=== PATIENT | female | born 1950 | race Caucasian/White ===

== ENCOUNTER 2025-07-14 14:20 | Inpatient (IN) | payer MEDICARE, OTHER, SELFPAY ==
[2025-07-14] VITALS (8 sets, daily range): BP systolic 108–121; BP diastolic 47–63; BMI 23.3
--- NOTE | 2025-07-14 11:17 | EDRN ---
Sharon ZHAO was in to see pt and placed O2 up to 4lpm via NC as POX was low. This RN adjusted the POX and POX is 95% on the 4lpm at this time.
--- NOTE | 2025-07-14 11:41 | VATNOTE ---
Patient requested left subq port to be accessed for labs and treatment per primary RN. Education on infection risk was given to patient. Patient agreed and preferred to continue with port access. left subq power port card verified. 20Hx1 inch harris
inserted under sterile technique. Labs drawn from port and flushed with hep lock.
[2025-07-14 12:15] LABS: Hematocrit 24.1 % (37.0-47.0); Hemoglobin 8.2 g/dL (12.0-16.0); Mean Corp Hgb Conc. 34.0 g/dL (33.0-37.0); Mean Corpuscular Volume 94.5 fL (81.0-99.0); Platelet Count 56 10^3/uL (130-400); Red Cell Dist. Width 14.7 % (11.5-14.5)
[2025-07-14 12:17] LABS: Troponin I 0.034 ng/ml
[2025-07-14 12:22] LABS: ALT (SGPT) 13 U/L (0-35); AST (SGOT) 20 U/L (14-36); Albumin 3.8 g/dl (3.5-5.0); Alkaline Phosphatase 82 U/L (38-126); Blood Urea Nitrogen 30 mg/dl (7-17); Calcium 9.0 mg/dl (8.4-10.2); Carbon Dioxide 28 mmol/L (22-30); Chloride 101 mmol/L (98-107); Glucose 94 mg/dl (70-99); Potassium 4.2 mmol/L (3.5-5.1); Sodium 135 mmol/L (135-145); Total Protein 6.9 g/dl (6.3-8.2); eGFR 43.42
--- NOTE | 2025-07-14 12:39 | ED.GENMED ---
History of Present Illness
<Carol Heath PA-C - Last Filed: 07/14/25 13:10>
General
Chief Complaint: Breathing Problem
Time Seen by Provider: 07/14/25 11:00
History of Present Illness
History of Present Illness:
Natty is a 75-year-old female with past medical history of mitral valve replacement, lung cancer who presents from radiation after progressive dyspnea over the last several weeks. States that she had dyspnea in the past and was supposed to have her
mitral valve either replaced or repaired again but was newly diagnosed with lung cancer and therefore this procedure completed on hold. For last several weeks she has been experiencing progressive dyspnea on exertion that has worsened exponentially
over the last several days. She is now unable to walk several feet without becoming extremely short of breath. Denies any associated chest pain, nausea, vomiting. Does not wear oxygen at home but is now requiring it.
Phy Exam
<Carol Heath PA-C - Last Filed: 07/14/25 13:10>
General Physical Exam
General Presentation: well appearing and no apparent distress
General Skin: warm and dry
General Habitus: normal
General Mental: alert
General Hydration: appears well hydrated
ENT Exam
ENT Exam: EOMI, pharynx normal, neck supple and normocephalic
Eye Exam
Eye Exam: PERRL, cornea clear and conjunctiva normal
Cardiovascular Exam
Cardiovascular Exam: regular rate/rhythm, no edema, no murmur and normal peripheral pulses
Pulmonary Exam
Pulmonary Exam: lungs clear, no respiratory distress, no rales, no crackles, no rhonchi, no stridor, no wheezing and no cough
Gastrointestinal Exam
Gastrointestinal Exam: normal bowel sounds, non tender, soft, no organomegaly, no pulsatile mass and non distended
Neurological Exam
Neurological Exam: alert, oriented x3, no motor deficits and speech normal
Musculoskeletal Exam
Musculoskeletal Exam: full ROM and no edema
Skin Exam
Skin Exam: normal color, warm/dry, no rash and no petechia
Psychiatric Exam
Psychiatric Exam: normal mood/affect
Scores
<Carol Heath PA-C - Last Filed: 07/14/25 13:10>
Heart Failure Risk
Heart Failure Risk Score: Yes
History of Stroke or TIA: No
History of intubation for respiratory distress: No
Heart rate on ED arrival >/= 110: No
SaO2 <90% on arrival on room air: Yes
HR >/=110 during 3min walk test (or too ill to perform test): No
ECG has acute ischemic changes: No
Urea >/=12mmol/L (BUN 33.6mg/dL): No
Serum CO2>/=35mmol/L: No
Troponin I or T elevated to NE Level (0.4mg/dL): No
NT-proBNP >/=5,000ng/L (5,000pg/ml): Yes
HF Risk Score: 2
Admission Status: MEDIUM RISK 9.2% Consider observation or discharge to home with homecare & f/u visit to PCP/[employer], or SNF for treatment
Course
<Carol Heath PA-C - Last Filed: 07/14/25 13:10>
Orders/Labs/Results
Orders:
Orders
07/14/25 10:53
Electrocardiogram (*1) Urgent
Reason for Study: Other
Other Reason for Exam: Respiratory Distress
Cardiac Monitoring- Treatment ONCE
EKG- Treatment ONCE
IV Insert/Care/Rem.- Treatment PRN
CR Chest - 2 Views Urgent
Comment:
Reason For Exam: respiratory distress
O2 Therapy [RESP] Urgent
Titrate/Wean O2 to maintain O2 sat greater than (%): 93
Special Instructions: TO MAINTAIN CONTINUOUS O2 SATS >/= 93%
Pulse Ox/cont/shift [RESP] Urgent
Quantity: 1
Special Instructions: continuous pulse ox
07/14/25 11:40
Complete Blood Count/With Diff Urgent
Comprehensive Metabolic Panel Urgent
Manual Differential Urgent
NT-proBNP Urgent
Troponin I Urgent
Abnormal Lab Results
07/14/25
11:40
WBC 0.8 L* 10^3/uL
(4.8-10.8)
RBC 2.55 L 10^6/uL
(4.20-5.40)
Hgb 8.2 L g/dL
(12.0-16.0)
Hct 24.1 L %
(37.0-47.0)
MCH 32.2 H pg
(27.0-31.0)
RDW 14.7 H %
(11.5-14.5)
Plt Count 56 L 10^3/uL
(130-400)
MPV 11.1 H fL
(7.4-10.4)
BUN 30 H mg/dl
(7-17)
Creatinine 1.3 H mg/dL
(0.6-1.0)
07/14/25 11:40
07/14/25 11:40
Vital Signs
Initial and Last Documented VS:
Initial Vital Signs
Temp Pulse Resp BP Pulse Ox
36.9 C 83 16 117/47 97
07/14/25 10:45 07/14/25 10:45 07/14/25 10:45 07/14/25 10:45 07/14/25 10:45
Last Documented Vital Signs
Temp Pulse Resp BP Pulse Ox
36.9 C 81 18 121/63 94
07/14/25 10:45 07/14/25 11:15 07/14/25 11:15 07/14/25 11:01 07/14/25 12:44
<Kimberley Lorenz MD - Last Filed: 07/14/25 12:53>
Orders/Labs/Results
Orders:
Orders
07/14/25 10:53
Electrocardiogram (*1) Urgent
Reason for Study: Other
Other Reason for Exam: Respiratory Distress
Cardiac Monitoring- Treatment ONCE
EKG- Treatment ONCE
IV Insert/Care/Rem.- Treatment PRN
CR Chest - 2 Views Urgent
Comment:
Reason For Exam: respiratory distress
O2 Therapy [RESP] Urgent
Titrate/Wean O2 to maintain O2 sat greater than (%): 93
Special Instructions: TO MAINTAIN CONTINUOUS O2 SATS >/= 93%
Pulse Ox/cont/shift [RESP] Urgent
Quantity: 1
Special Instructions: continuous pulse ox
07/14/25 11:40
Complete Blood Count/With Diff Urgent
Comprehensive Metabolic Panel Urgent
Manual Differential Urgent
NT-proBNP Urgent
Troponin I Urgent
Abnormal Lab Results
07/14/25
11:40
WBC 0.8 L* 10^3/uL
(4.8-10.8)
RBC 2.55 L 10^6/uL
(4.20-5.40)
Hgb 8.2 L g/dL
(12.0-16.0)
Hct 24.1 L %
(37.0-47.0)
MCH 32.2 H pg
(27.0-31.0)
RDW 14.7 H %
(11.5-14.5)
Plt Count 56 L 10^3/uL
(130-400)
MPV 11.1 H fL
(7.4-10.4)
BUN 30 H mg/dl
(7-17)
Creatinine 1.3 H mg/dL
(0.6-1.0)
07/14/25 11:40
07/14/25 11:40
Vital Signs
Initial and Last Documented VS:
Initial Vital Signs
Temp Pulse Resp BP Pulse Ox
36.9 C 83 16 117/47 97
07/14/25 10:45 07/14/25 10:45 07/14/25 10:45 07/14/25 10:45 07/14/25 10:45
Last Documented Vital Signs
Temp Pulse Resp BP Pulse Ox
36.9 C 81 18 121/63 94
07/14/25 10:45 07/14/25 11:15 07/14/25 11:15 07/14/25 11:01 07/14/25 12:44
<Carol Heath PA-C - Last Filed: 07/14/25 13:10>
MDM/Problems Addressed
Differential Diagnosis Includes:
Requiring 2 L nasal cannula on arrival and satting at 88%. Increased to 4 L with a good response.
CBC shows neutropenia which is related to her ongoing chemotherapy treatment for lung cancer. BMP shows elevated creatinine of 1.3 is not baseline for patient.
Chest x-ray appears volume overloaded. Will give 40 of IV Lasix now. Given the patient is requiring supplemental oxygen and is unable to ambulate without becoming very short of breath will have patient admitted to the hospital service. Discussed
with Dr. Lorenz.
<Carol Heath PA-C - Last Filed: 07/14/25 13:10>
*Pulse Oximetry
SaO2: 94
Nasal Cannula flow liters per minute: 4
Oxygen Mode of Delivery: Room air
Patient hypoxic: yes
*Critical Care Note
Total Time (30-74mins, 75-104mins- exclusive of procedures): Not Applicable
ED Attending Note
<Carol Heath PA-C - Last Filed: 07/14/25 13:10>
-
Portions of this chart may have been created with voice recognition software.� Occasional wrong word or��sound alike� substitutions may have occurred due to the inherent limitations of voice recognition software.
<Kimberley Lorenz MD - Last Filed: 07/14/25 12:53>
ED Attending Note
Patient seen and examined by attending physician: Yes
I performed the substantive portion of visit, reviewed & personally made and approve the management plan that is documented in note by myself or NESHA.: Yes
ED Attending Note:
I have seen and evaluated the patient with a [id number] encounter. I have spoken to the [NESHA] and involved in the medical history, the physical exam, medical decision making.
Evaluation and management service: agree unless noted differently below.
Results interpretation: agree unless noted differently below.
75-year-old woman with history of lung cancer presenting to the emergency department shortness of breath. Patient has been having dyspnea on exertion for quite some time. She does note that she has fluid in her lungs and she is on Lasix for it.
However symptoms are not getting better. Denies any leg swelling. No chest pain. No hemoptysis. She is not on oxygen regularly. On arrival here patient was hypoxic. She was placed on 4 L. Lungs do show crackles at bilateral bases. Heart is
regular rate and rhythm. Chest x-ray per my interpretation with pleural effusions and vascular congestion. Patient will need admission.
Discharge Plan
Departure
Patient Disposition: Admit
Date of Disposition: 07/14/25
Time of Disposition: 13:07
Presentation/result/management discussed w/ accepting MD/DO: Hospitalist
Discharge Problem:
LAOGS (dyspnea on exertion), Exertional shortness of breath, Volume overload
Referrals:
Gavi Sidhu CRNP [Family Provider, General]
Interventions
Interventions:
*Risk Screen - Suicide Last Done: 07/14/25 10:50
*General Assessment Last Done: 07/14/25 11:22
*Neglect/Abuse Screening Last Done: 07/14/25 11:22
*ED COVID-19 Vaccine History Last Done: 07/14/25 11:22
*ED Influenza Vaccine History Last Done: 07/14/25 11:22
[facility] Fall Risk Assessment Tool Last Done: 07/14/25 10:31
ED- Cardiac Assessment Last Done: 07/14/25 11:22
ED- Pulmonary Assessment Last Done: 07/14/25 11:22
Discharge Date and Time
Print Language: JORDANIAN
--- NOTE | 2025-07-14 13:13 | HPS.HSE ---
Family Physician
-
Family Physician: DESI Samuel
Chief Complaint
-
Shortness of breath
History of Present Illness
Patient is a 75 y/o female past medical history of small cell lung cancer currently undergoing chemotherapy and radiation, paroxysmal atrial fibrillation, chronic heart failure, valvular heart disease, chronic kidney disease, and graves disease who
presents with increased shortness of breath. Patient reports increased dyspnea on exertion since this morning. She reports symptoms resolve with rest. She denies chest pain, palpitations, lower extremity edema, changes in weight, cough, or fever.
She reports her Lasix dose was decreased from twice a day to once a day about 2-3 weeks ago.
Medical History
Past Medical History
Past Medical History: Reports Other
Additional Past Medical History:
Small Cell Lung Cancer
COPD
Pulmonary Hypertension
Chronic HFpEF
Valvular Heart Disease
Paroxysmal Atrial Fibrillation s/p MITZY ligation and MAZE procedure
Essential Hypertension
Hyperlipidemia
CKD Stage III
Graves Disease
Past Surgical History: Reports Other
Additional Past Surgical History:
Bioprosthetic Mitral Valve Replacement - 2019
Social History
Tobacco: Former Smoker (Quit in 2019)
Alcohol: Other (Rare)
Family History
Family History: Not pertinent
Allergies / Home Medications
Allergies reflects when Allergies were last updated in [facility].
Home Medications with original date entered in [facility]
Allergy/Medication List:
Allergies
Allergy/AdvReac Type Severity Reaction Status Date / Time
No Known Allergies Allergy Unverified 07/14/25 10:50
Home Medications
amiodarone 200 mg tablet 200 mg PO DAILY 07/14/25
apixaban 5 mg tablet (Eliquis) 5 mg PO BID 07/14/25
calcium carbonate 500 mg PO DAILY 07/14/25
cyclobenzaprine 5 mg tablet 5 mg PO TIDPRN PRN spasms 07/14/25
furosemide 40 mg tablet (Lasix) 40 mg PO DAILY 07/14/25
levothyroxine 50 mcg tablet (Synthroid) 50 mcg PO DAILY 07/14/25
metoprolol succinate 25 mg tablet,extended release 24 hr (Toprol XL) 25 mg PO DAILY 07/14/25
olanzapine 5 mg tablet 5 mg PO HS 07/14/25
rosuvastatin 5 mg tablet (Crestor) 5 mg PO DAILY 07/14/25
therapeutic multivitamin 1 tab PO DAILY 07/14/25
umeclidinium 62.5 mcg-vilanterol 25 mcg/actuation powdr for inhalation (Anoro Ellipta) 1 inh inhalation R DAILY 07/14/25
Review of Systems
-
A 12 point ROS was completed and negative except as noted: Yes
Constitutional: Denies Fever
Respiratory: Reports Trouble Breathing; Denies Cough
Cardiac: Denies Chest Pain or Palpitations
Physical Exam
Vital Signs
Vital Signs
Temp Pulse Resp BP Pulse Ox
98.4 F 81 18 121/63 94
07/14/25 10:45 07/14/25 11:15 07/14/25 11:15 07/14/25 11:01 07/14/25 12:44
Physical Exam
General: Comfortable and Conversant
HEENT: Anicteric and Moist mucous membranes
Respiratory: Rales (Bilaterally) and Non Labored Respirations
Cardiac: S1/S2 and Regular Rhythm
GI: Soft and Non Tender
Rectal: Deferred by Provider
Musculoskeletal: No Clubbing, No Cyanosis and No Edema
Skin: Warm and Dry
Neuro: Awake, Alert, Oriented and Nonfocal/grossly intact
Psych: Calm
Laboratory Results
-
07/14/25 11:40
07/14/25 11:40
Laboratory Results
Total Bilirubin 0.8 mg/dl (0.2-1.3) 07/14/25 11:40
AST 20 U/L (14-36) 07/14/25 11:40
ALT 13 U/L (0-35) 07/14/25 11:40
Alkaline Phosphatase 82 U/L (38-126) 07/14/25 11:40
Troponin I 0.034 ng/ml 07/14/25 11:40
Chest X-Ray:
Mild pulmonary edema. Small left pleural effusion.
Data Reviewed
-
Lab Data: Labs Reviewed by me
Old Records: Reviewed
Impression/Plan
-
Acute on Chronic HFpEF
-Echo 2024: Mildly increased left ventricular wall thickness consistent with mild centric hypertrophy. No segmental wall motion abnormalities. Left ventricular ejection fraction 65%. Bioprosthetic mitral valve prothesis with mild mitral
regurgitation and moderate mitral stenosis.
-NT-proBNP significantly elevated 7950 compared to 479 in Mar 2025
-Consult Cardiology
-Check Echocardiogram to evaluate for any changes related to chemotherapy +/- radiation
-Continue Lasix 40mg IV BID
-Monitor Is&Os and Daily Weights
Chemo-Induced Pancytopenia
-Consult hematology
-Monitor counts closely
Small Cell Lung Cancer, receives treatment at [place]
-Most recent chemotherapy Jul 02
-Most recent radiation Jul 14
COPD, no acute exacerbation
-Continue Anoro Ellipta
Paroxysmal Atrial Fibrillation s/p MITZY ligation and MAZE procedure
-Continue Eliquis for anticoagulation
-Continue amiodarone and metoprolol for rate/rhythm control
Essential Hypertension
-Continue metoprolol with hold parameters
Hyperlipidemia
-Continue Crestor
CKD Stage III
-Creatinine at baseline
-Monitor closely while on diuretics
Graves Disease
-Continue levothyroxine
Hx Bioprosthetic Mitral Valve Replacement - 2018
DVT proph: Eliquis
Code Status: Full Code
--- NOTE | 2025-07-14 13:16 | W.PN.UPDATE ---
Update Note
Progress Note Update
This note serves as an addendum to the H&P by chief architect NESHA Alison BROWNLEE
HPI�
75F HX Ca Lung on going XRT , HX MVR seen at ER ;
- evalaution of worsening SoB espicailly with exertion
- on EARLY CHILDHOOD EDUCATION COORDINATOR Lasix but not imprived
- Denies any leg swelling.
- No chest pain. No hemoptysis.
- not on O2 regularly.
On arrival - hypoxic POX 88% thus placed on 4 L.
CXR : my interpretation with pleural effusions and vascular congestion
CBC : neutropenia which is related to her ongoing chemotherapy treatment for lung cancer.
BMP : elevated creatinine of 1.3 is not baseline for patient.
p BNP 7 k
IV lasix 40 given at ER
PHX: see above
All health care is by [facility] and [facility]
Ca lung Nodule
Reviewed VS:
Temp Pulse Resp BP Pulse Ox
98.4 F 81 18 121/63 94
07/14/25 10:45 07/14/25 11:15 07/14/25 11:15 07/14/25 11:01 07/14/25 12:44
PE
Gen: Not toxic
HEENT: anicteric
Neck: supple
Lungs:basilar rales
Cor: RRR S1 S2
Abdomen:�soft NT NG
ACCOUNT INSTALLER: AAO3
MS:no edema
Psych:Nl mood and affect
Relevant Data�
07/14/25
11:40
WBC 0.8 L*
Hgb 8.2 L
Plt Count 56 L
BUN 30 H
Creatinine 1.3 H
eGFR 43.42
Total Bilirubin 0.8
AST 20
ALT 13
Alkaline Phosphatase 82
Troponin I 0.034
Urg-X-Mhwyohfyuqi Pept 7950
Albumin 3.8
Baseline Cr 1.2 - 1.3
BNP 400 March 2025 ( [facility])
06/27/25 Nl WCC, Nl Plt , Hgb 11
CXR:
1. Mild pulmonary edema.
2. Small left pleural effusion.
3. Left lower lobe nodule seen on prior PET/CT dated 01/31/2025 is not well-visualized on chest x-ray.
EKG
NORMAL SINUS RHYTHM
NONSPECIFIC T WAVE ABNORMALITY
ABNORMAL ECG
NO PREVIOUS ECGS AVAILABLE
01/31/25 PET scan
- Markedly FDG avid solitary left lower lobe pulmonary nodule (which further increases upon delayed imaging), highly suspicious for primary lung cancer.
- No additional suspicious FDG avid lesions in the body.
NO PRIOR hospitalist admission:
ASSESSMENT & PLAN
Progressive [place] with associated acute hypoxic RI due to acute HF
In acute HF suspect CHF unknown type ( No prior TTE in [facility])
- IV Lasix 40 BID ( EARLY CHILDHOOD EDUCATION COORDINATOR PO 40 BID)
- c/w EARLY CHILDHOOD EDUCATION COORDINATOR Metoprolol XL 25 daily
- Supplemental O2 - goal POX > 94%
- Daily IOs, wt
- Daily BMP
- ECHO
- DCA Card consult
ANC 60 ( WCC 0.8, % Neutrophils 0.0, Sef Neutrophils 8%)
- Chemo induced pancytopenia
- Last Chemo 07/02/25 and on going XRT last 2 weeks
- 01/31/25 PET POS HX solitary left lower lobe pulmonary nodule (which further increases upon delayed imaging), highly suspicious for primary lung cancer.
- Bx POS for SC
- P Onco at [facility]
- Hematology consult for ANC 60 and evaluation for GCSF ?
Known CKD with baseline Cr 1.2 - 1.3
- Trend Cr with IV diuresis
In NSR
HX Prx AF
- c/w EARLY CHILDHOOD EDUCATION COORDINATOR Eliquis
- c/w EARLY CHILDHOOD EDUCATION COORDINATOR Amiodarone
HLD
- c/w Rosuvastatin
DVT Px: EARLY CHILDHOOD EDUCATION COORDINATOR Eliquis
Full Code
IP TLM
[2025-07-14 13:41] LABS: Anisocytosis 1+; Normal RBC Morphology No; Platelets Checked Yes; Polychromasia 1+; Total Cells Counted 100
[2025-07-14 13:42] LABS: Absolute Neutrophils -Man Diff 0.0 10^3/uL (1.4-6.5)
[2025-07-14] MEDS: LASIX 40 MG IV ×2 (14:22→16:37)
--- NOTE | 2025-07-14 15:13 | CON.CAR ---
Addendum entered and electronically signed by Josephine Moore DO 07/15/25 02:44:
I saw and examined the patient.
The Business Department Chair's note was reviewed and I agree with the note.
Comment: Patient was seen and examined with cardiac PA in ED. Natty is a 75 year old female who presented to [facility] ER for evaluation of worsening shortness after radiation treatment today. She reports shortness of breath started late last week and
persisted over the weekend. She denies fever/chills or sick contacts. She has had no worsening of her cough. During radiation today she became increasingly short of breath and requested O2 prompting ER referral. Her oxygenation improved reportedly
and she came to ER for evaluation. On arrival she was hypoxic and had evidence of acute heart failure on chest xray and with proBNP 7950. She denies any weight gain noted as OP, but states she is typically between 140 and 145 lbs. Weight in ER noted
to be elevated at 148 lbs. She denies any LE edema or chest pain.
.
Natty has a history of a [facility] bioprosthetic mitral valve replacement in 2019 as well as paroxysmal atrial fibrillation status post maze and left atrial appendage ligation at the time of mitral valve replacement. She is on chronic Eliquis
anticoagulation as well as amiodarone and was recently found by her corrugator machine operator to have stenosis of her bioprosthetic valve. She had been referred to CT surgery however focus of her care shifted when she was diagnosed with small cell lung cancer.
She is now under the care of [facility] undergoing chemotherapy (chemo with carboplatin/etoposide, last 07/02) with Dr. Mallorie Ross and receiving radiation through [facility].Her outpatient corrugator machine operator is Dr. Garcia. She is
also followed by Dr. Mallorei Ross at [facility] ([phone]; [phone]). Records will be requested
General: Frail 75-year-old female, NAD on nasal cannula O2; Chemotherapy alopecia
Heart: Regular, positive S1/S2, 2/6 SM
Lungs: Bronchovesicular breath sounds with crackles bilaterally and scattered end expiratory wheezes.
Abd: Positive BS, NT/ND, neg rebound/rigidity/guarding
Ext: no edema
Neuro: nonfocal
Plan:
Acute hypoxic respiratory failure with recently diagnosed non-small cell lung cancer undergoing chemotherapy and radiation as well as prostatic mitral stenosis status post bioprosthetic MVR in 2019
- Chest x-ray with pulmonary edema and small left pleural effusion
- proBNP 7950.
- Cardiac troponin 0.034 -doubt ACS
- twelve-lead EKG sinus rhythm with nonspecific ST-T wave abnormality
- Repeat 2D echocardiogram to reassess heart function and valvular heart disease as well as to exclude pericardial effusion
-O2 supplementation
- Continue IV Lasix
- Monitor renal function/electrolytes with diuresis. Creatinine 1.3 with unknown baseline
- In sinus rhythm but with history of PAF�continue telemetry monitoring.
- Given immunocompromise state would consider checking for flu/COVID, defer to primary
-Hemoglobin 8.2 with unknown baseline. WBC 0.8, platelet count 56,000..
- Pending additional testing will likely need to reach out to patient's oncologist and outpatient corrugator machine operator.
History of paroxysmal atrial fibrillation currently in sinus rhythm. Patient reportedly has left atrial appendage ligation in 2019
- Currently in sinus rhythm and with monitor on telemetryFollow CBC
- For now continue outpatient amiodarone and beta-roselia
- Continue Eliquis with close monitoring of hemoglobin/platelets
-History of Graves' disease on amiodarone. Check TSH
Non-small cell lung cancer currently receiving chemotherapy and radiation with pancytopenia
-Follow CBC
Original Note:
Consultation
Consultation Request
Date/Time Consultation Requested: 07/14/2025
Date/Time Consultation Performed: 07/14/2025
Requesting Provider: Dr. Dutta
Performing Provider: Rebekah Clarke PA-C for Dr. Moore
Reason for Consultation: CHF
Medical History
-
History of Present Illness:
HPI: Natty is a 75 year old female with PMH of chronic HFpEF, paroxysmal atrial fibrillation, MVR, lung cancer, graves disease, COPD, HTN, and HLD. Presented to [facility] ER for evaluation of worsening shortness of breath over the past few days. She
first noticed symptoms over the weekend, and when she was leaving her radiation appt earlier today, became increasingly SOB and requested O2 therapy. Her oxygenation improved reportedly and she came to ER for evaluation. On arrival she was hypoxic
and had evidence of acute heart failure on chest xray and with proBNP 7950. She denies any weight gain noted as OP, but states she is typically between 140 and 145 lbs. Weight in ER noted to be elevated at 148 lbs. She denies any LE edema or chest
pain. Typically follows with cardiology at [place], Dr. Alas. Has known moderate bioprosthetic mitral valve stenosis. Has been referred to CT surgery, but plan was to focus on management/treatment of lung cancer and follow up for valve intervention
once in remission/improved from oncology viewpoint.
PMH:
Chronic HFpEF
Paroxysmal atrial fibrillation
s/p MAZE, MITZY ligation
chronic amiodarone therapy
Chronic OAC with Eliquis
s/p #29 [facility] bioprosthetic MVR 10/26/2018
Lung Cancer
Graves Disease
COPD
HTN
HLD
Past Medical History
Past Medical History: Other (In HPI)
Past Surgical History: Cardiac (MVR 2018)
Social History
Tobacco: Former Smoker
Alcohol: Occasional
Drug: None
Personal: Single
Family History
Family History: Reviewed & Not Pertinent
Allergies / Home Medications
Allergy/AdvReac Type Severity Reaction Status Date / Time
No Known Allergies Allergy Unverified 07/14/25 10:50
�Medication �Instructions �Recorded �Confirmed �Type
amiodarone 200 mg tablet 200 mg PO DAILY 07/14/25 07/14/25 History
apixaban 5 mg tablet (Eliquis) 5 mg PO BID 07/14/25 07/14/25 History
calcium carbonate 500 mg PO DAILY 07/14/25 07/14/25 History
cyclobenzaprine 5 mg tablet 5 mg PO TIDPRN PRN spasms 07/14/25 07/14/25 History
furosemide 40 mg tablet (Lasix) 40 mg PO DAILY 07/14/25 07/14/25 History
levothyroxine 50 mcg tablet 50 mcg PO DAILY 07/14/25 07/14/25 History
(Synthroid)
metoprolol succinate 25 mg 25 mg PO DAILY 07/14/25 07/14/25 History
tablet,extended release 24 hr
(Toprol XL)
olanzapine 5 mg tablet 5 mg PO HS 07/14/25 07/14/25 History
rosuvastatin 5 mg tablet (Crestor) 5 mg PO DAILY 07/14/25 07/14/25 History
therapeutic multivitamin 1 tab PO DAILY 07/14/25 07/14/25 History
umeclidinium 62.5 mcg-vilanterol 1 inh inhalation R DAILY 07/14/25 07/14/25 History
25 mcg/actuation powdr for
inhalation (Anoro Ellipta)
Review of Systems
-
History Source: Patient
All other systems: Negative unless noted
Physical Exam
Vital Signs
Temp Pulse Resp BP Pulse Ox
98.4 F 91 26 110/57 97
07/14/25 10:45 07/14/25 14:30 07/14/25 14:30 07/14/25 14:22 07/14/25 14:30
Lab Results
07/14/25 11:40
07/14/25 11:40
Troponin I 0.034 ng/ml 07/14/25 11:40
Qui-V-Nmzxevgwuwb Pept 7950 pg/ml 07/14/25 11:40
Physical Exam
General: Well Developed, Well Nourished and No Apparent Distress
HEENT: Normocephalic, Anicteric and Moist Mucous Membranes
Respiratory: Crackles and Non Labored Respirations
Cardiac: S1/S2, Regular Rhythm and Murmur
Musculoskeletal: No Clubbing, No Cyanosis and Edema
Skin: Warm and Dry
Neuro: AO x 3 and Nonfocal/Grossly Intact
Psych: Calm
Impression / Plan
-
Delinquency Prevention Officer: Dr. Alas
Impression:
Presented with worsening SOB
Acute on chronic HFpEF
Pancytopenia
Paroxysmal atrial fibrillation
s/p MAZE, MITZY ligation
chronic amiodarone therapy
Chronic OAC with Eliquis
s/p #29 [facility] bioprosthetic MVR 10/26/2018
Lung Cancer receiving XRT and chemo with carboplatin/etoposide
Graves Disease
COPD
HTN
HLD
DOUGLAS 10/03/2024 @[place]: EF 65%, well-seated bioprosthetic mitral valve with mild MR, moderate MS, trace AR, moderate to severe TR with moderate to severe pulmonary hypertension
Echo 07/14/2025: Study pending
Plan:
-Presented with worsening shortness of breath over the past few days. Admitted with acute heart failure exacerbation. proBNP 7950
-Agree with starting IV Lasix 40 mg twice daily. She is on Lasix 40 mg daily as outpatient. Dose had been reduced within the past month or so from 40 mg twice daily.
-Creatinine 1.3. Follow with diuresis.
-Weight 148 pounds on 07/14. Follow daily weights, I&O's. Reported dry weight is between 140 and 145 pounds.
-DOUGLAS 10/03/2024 revealed preserved EF with moderate bioprosthetic mitral valve stenosis. Repeat echo this admission
-In SR by ECG and on review of telemetry. Heart rates stable. Continue amiodarone 200 mg daily.
-Continue Eliquis 5 mg twice daily for anticoagulation given history of atrial fibrillation.
-Continue Toprol 25 mg daily and rosuvastatin 5 mg daily.
-On 4L NC. Wean as able.
HPI: Natty is a 75 year old female with PMH of chronic HFpEF, paroxysmal atrial fibrillation, MVR, lung cancer, graves disease, COPD, HTN, and HLD. Presented to [facility] ER for evaluation of worsening shortness of breath over the past few days. She
first noticed symptoms over the weekend, and when she was leaving her radiation appt earlier today, became increasingly SOB and requested O2 therapy. Her oxygenation improved reportedly and she came to ER for evaluation. On arrival she was hypoxic
and had evidence of acute heart failure on chest xray and with proBNP 7950. She denies any weight gain noted as OP, but states she is typically between 140 and 145 lbs. Weight in ER noted to be elevated at 148 lbs. She denies any LE edema or chest
pain. Typically follows with cardiology at [place], Dr. Alas. Has known moderate bioprosthetic mitral valve stenosis. Has been referred to CT surgery, but plan was to focus on management/treatment of lung cancer and follow up for valve intervention
once in remission/improved from oncology viewpoint.
Data Reviewed
-
EKG: Tracing Personally Visualized and interpreted
Radiology: Report Reviewed by me
Labs: Labs Reviewed by me
Old Records: Reviewed
--- NOTE | 2025-07-14 15:33 | EDCM ---
Reviewed chart and met with pt bedside in ED. Lives alone in one story home, 2 [address].
Independent in ADLs, personal care and ambulation at baseline. No assistive devices.
Pt has been receiving chemo and radiation for lung cancer at [place]. She wants to complete her cancer treatment prior to having mitral valve replacement. MVR to be done at [facility].
Her niece lives locally and provides support, her sister live in [place]. She does not have her phone with her and does not know their numbers.
Currently on 4 L NC in ED, does not have home O2.
Confirms prescription coverage.
PCP: Gavi Sidhu
Pharmacy: [facility]
Anticipate discharge home, CM will continue to follow for all discharge planning needs.
--- NOTE | 2025-07-14 16:47 | PTCARENOTE ---
Pt arrived to [facility] from ED via stretcher at 1600. Pt walked from stretcher to room with an assist of one. Vitals taken, on 4L of O2, connected to tele monitor #4. Pt oriented to room with no current complaints. Plan of care ongoing.
--- NOTE | 2025-07-14 18:49 | W.PN.UPDATE ---
Update Note
Progress Note Update
Reviewed patient echocardiogram which demonstrates preserved LV function with evidence of severe MS and TR with elevated pulmonary pressures. Patient to be transferred to IVU for closer monitoring. Continue telemetry and IV diuresis. Case
discussed/reviewed with Dr Moore who performed initial consult.
[2025-07-14] MEDS: ELIQUIS 5 MG PO (19:49)
--- NOTE | 2025-07-14 21:23 | PTCARENOTE ---
received the patient from the 3rd floor. niece at the bedside. AAOx3. SQUAXIN. denies any cp/palps. complains of shortness of breath; more on exertion. shallow breathing noted. crackles b/l bases. 96% on 4L NC. dry cough noted- patient states it is new.
ambulated in the room, steady on her feet. reviewed plan of care with patient and verbalized understanding. neutropenic precautions maintained/sign on door. call garnica within reach. makes needs known.
[2025-07-15 04:16] VITALS: BP 103/55
[2025-07-15 04:59] LABS: Blood Urea Nitrogen 25 mg/dl (7-17); Calcium 8.9 mg/dl (8.4-10.2); Carbon Dioxide 32 mmol/L (22-30); Chloride 98 mmol/L (98-107); Estimated Creatinine Clearance 35 ml/min; Glucose 102 mg/dl (70-99); HDL Cholesterol 51 mg/dl; LDL Cholesterol, Calculated 60 mg/dl; Magnesium 2.0 mg/dl (1.6-2.3); Potassium 3.9 mmol/L (3.5-5.1); Sodium 134 mmol/L (135-145); Very Low Density Lipoprotein 19 mg/dl (0-30); eGFR 43.42
[2025-07-15 05:11] LABS: Hematocrit 25.0 % (37.0-47.0); Hemoglobin 8.3 g/dL (12.0-16.0); Mean Corp Hgb Conc. 33.2 g/dL (33.0-37.0); Mean Corpuscular Volume 95.8 fL (81.0-99.0); Platelet Count 68 10^3/uL (130-400); Red Cell Dist. Width 15.4 % (11.5-14.5)
[2025-07-15 06:00] VITALS: BMI 22.6
[2025-07-15] MEDS: SYNTHROID 50 MCG PO (06:15)
[2025-07-15 07:08] VITALS: BP 129/79
[2025-07-15] MEDS: ELIQUIS 5 MG PO ×2 (07:28→19:31)
[2025-07-15] MEDS: TOPROL XL 25 MG PO (07:28)
[2025-07-15] MEDS: LASIX 40 MG IV ×2 (07:28→16:15)
[2025-07-15] MEDS: PACERONE 200 MG PO (07:28)
[2025-07-15] MEDS: CRESTOR 5 MG PO (07:34)
--- NOTE | 2025-07-15 08:45 | W.PN.HOSP.TC ---
Today's Communication/Plan
-
Continue Lasix
Assessment / Plan
Assessment / Plan
Impression:
Patient is a 75 y/o female past medical history of small cell lung cancer currently undergoing chemotherapy and radiation, paroxysmal atrial fibrillation, chronic heart failure, valvular heart disease, chronic kidney disease, and graves disease who
presents with increased shortness of breath. Patient reports increased dyspnea on exertion since this morning. She reports symptoms resolve with rest. She denies chest pain, palpitations, lower extremity edema, changes in weight, cough, or fever.
She reports her Lasix dose was decreased from twice a day to once a day about 2-3 weeks ago.
Patient treated for CHF admitted initially to telemetry floor, echocardiogram done shows severe mitral stenosis and tricuspid regurg with elevated pulmonary pressure, cardiology recommending transfer to IVU, continued on IV Lasix, consulted
cardiology and oncology.
Assessment/plan:
Acute hypoxic respiratory failure, multifactorial.
Secondary acute on Chronic HFpEF with underlying lung cancer diagnosis
Patient presented with shortness of breath.
NT-proBNP: 7,950 (previously 479 in Mar 2025).
Troponin level is 0.034
Continue IV diuresing in form of Lasix 40 mg twice daily
Daily weight.
Strict I's and O's.
Consulted cardiology.
Most recent echo shows :
Echo (Sep 2024): Mildly increased LV wall thickness (mild concentric hypertrophy), no segmental wall motion abnormalities, LVEF 65%. Bioprosthetic mitral valve with mild MR and moderate MS.
Repeat echocardiogram 07/14 done shows:
1. Normal left ventricular size and function./ LVEF 60% visually. Abnormal septal motion.
2. Dilated right ventricle with grossly normal right ventricle systolic function.
3. S/p mitral valve replacement #29 [facility] Bioprosthetic. Severe mitral stenosis. Peak/Mean gradients 52/25 mmHg.
4. Severe tricuspid regurgitation with estimated pulmonary artery pressure 78 mmHg assuming right atrial pressure of 3 mmHg.
5. No prior study for comparison.
07/15
Shortness of breath improved but still with exertion.
Continue diuretic
Cardiology increased toprol.
Severe mitral stenosis/severe tricuspid regurg.
As above.
Cardiology consulted
CT surgery consulted.
Advised to continue medical treatment for now and patient will likely need an surgical mitral valve and tricuspid valve surgery as outpatient after finishing her chemotherapy and radiation.
Chemo-Induced Pancytopenia
Consulted Hematology.
Monitor blood counts closely.
Small Cell Lung Cancer
Receives treatment at [place].
Most recent chemotherapy: Jul 02.
Most recent radiation: Jul 14.
Plan: Continue oncology follow-up.
COPD (No acute exacerbation)
Plan: Continue Anoro Ellipta.
Paroxysmal Atrial Fibrillation (s/p MITZY ligation & MAZE)
Continue Eliquis for anticoagulation.
Continue amiodarone and metoprolol for rate/rhythm control.
Essential Hypertension
Plan: Continue metoprolol with hold parameters.
Hyperlipidemia
Plan: Continue Crestor.
CKD Stage III
Creatinine at baseline.
Plan: Monitor renal function closely while on diuretics.
History of Graves Disease
Plan: Continue levothyroxine.
History of Bioprosthetic Mitral Valve Replacement (2018)
DVT Prophylaxis: Eliquis
Code Status: Full Code
Diet: 2 gram NA diet
Disposition: Continue diuresis
Total time spent on today's encounter was 65 minutes which included time spent in counseling the patient/family regarding diagnosis and treatment plan as listed above, goals of care, and symptom management. Case was discussed with nursing staff,
specialists, and care coordinators/case management. All labs and imaging personally reviewed by me. Remainder the time spent in detailed review of previous records, lab data, imaging, and other medical provider documentation.
Anticipated Discharge: 24 - 48 hours
Subjective/Interval History
-
Date of Service: July 15, 2025
Patient seen and examined at bedside, denies any chest pain , shortness of breath Improved at rest but still with exertion, no abdominal pain, no nausea, no vomiting, no diarrhea or constipation.
lower extremity edema improved.
Objective Data
-
Labs:
Laboratory Results
07/15/25
04:17
WBC 1.1 L*
Hgb 8.3 L
Hct 25.0 L
Plt Count 68 L D
Sodium 134 L
Potassium 3.9
Chloride 98
Carbon Dioxide 32 H
BUN 25 H
Creatinine 1.3 H
Glucose 102 H
Calcium 8.9
Vital Signs:
Vital Signs
Temp Pulse Resp BP Pulse Ox
97.8 F 85 20 129/79 94
07/15/25 07:11 07/15/25 07:45 07/15/25 07:11 07/15/25 07:08 07/15/25 07:11
I&O
07/14/25 07/15/25 07/16/25
06:59 06:59 06:59
Output Total 450 / 450
Balance -450 / -450
Physical Exam
-
General: Well Developed, Well Nourished, No Apparent Distress and Comfortable
HEENT: Normocephalic, Atraumatic, Moist Mucous Membranes, No Ptosis, PERRLA and Nose Appears Normal
Respiratory: Rales, Rhonchi and Non Labored Respirations
Cardiac: Regular Rhythm and S1/S2
Breast: Deferred by me
GI: Soft, Nontender, Nondistended and Normal Bowel Sounds
Genito-urinary: No Costovertebral Tender
Musculoskeletal: No Clubbing, No Cyanosis and No Edema
Skin: Warm
Neuro: Awake, Alert, Oriented, AO x 3 and No Motor Deficits
Psych: Calm
Data Reviewed
-
Diagnostic Radiology: Image personally visualized and interpreted and Report Reviewed by me
CT Scan: Image personally visualized and interpreted and Report Reviewed by me
Ultrasound: Image personally visualized and interpreted and Report Reviewed by me
MRI: Image personally visualized and interpreted and Report Reviewed by me
Medical Tests (Nuc Med, Echo etc): Image personally visualized and interpreted and Report Reviewed by me
Labs: Labs Reviewed by me
Old Records: Reviewed
[2025-07-15] MEDS: SPIRIVA RESPIMAT 2.5 MCG 2 PUFF INH (08:53)
[2025-07-15] MEDS: STRIVERDI RESPIMAT 2 PUFF INH (08:53)
--- NOTE | 2025-07-15 11:41 | CON.ONC ---
Consultation
-
Date Consultation Requested: 07/15/25
Date Consultation Performed: 07/15/25
Requesting Provider: Tra
Performing Provider: Abbie
Reason for Consultation: pancytopenia
Impression
Impression
Severe neutropenia with anemia and thrombocytopenia due to chemotherapy and radiation therapy
Congestive heart failure
Bioprosthetic mitral valve stenosis
Plan
Plan
She has a mild monocytosis which is a harbinger of neutrophil recovery. I would not begin Neupogen, both on that basis, as well as the fact that it may be counterproductive in patients who are getting both radiation therapy and chemotherapy. Will
await further neutrophil recovery. If she does develop a fever in excess of 100.5 degrees, she would need to be started on broad-spectrum antibiotics. Her current platelet count is high enough that she can continue on Eliquis for her atrial
fibrillation. Her chemotherapy regimen is unlikely to have caused any cardiac issues.
Patient History
History of Present Illness
This 75-year-old woman was admitted because of progressive breathing difficulties. Evaluation here is most compatible with congestive heart failure. A repeat echo shows severe bioprosthetic mitral valve stenosis as well as severe tricuspid
regurgitation, plans are in progress in terms of addressing these issues. She does have a slight nonproductive cough. She denies any diarrhea. She has not been running fevers here in the hospital.
Recent history is remarkable for a limited stage small cell lung cancer diagnosed about 3 months ago. She has been undergoing chemotherapy with cisplatin and etoposide, she is fairly certain she has received 2 cycles thus far, her second cycle
being during the 3 days before . She has also been receiving concurrent radiation therapy, all of these treatments are through [place]. She has otherwise been tolerating the chemotherapy well.
Past-Medical/Surgical History
As per problem list below.
Social history: She stopped smoking about 15 years ago.
Family history is noncontributory.
Patient Medication
�Medication �Instructions �Recorded �Confirmed �Last Taken �Type
amiodarone 200 mg tablet 200 mg PO DAILY Arrhythmia 07/14/25 07/14/25 07/13/25 History
apixaban 5 mg tablet (Eliquis) 5 mg PO BID Blood Clot 07/14/25 07/14/25 07/13/25 History
Prevention/Tx
calcium carbonate 500 mg PO DAILY Supplement 07/14/25 07/14/25 07/13/25 History
cyclobenzaprine 5 mg tablet 5 mg PO TIDPRN PRN spasms 07/14/25 07/14/25 7 Days Ago History
~07/07/25
furosemide 40 mg tablet (Lasix) 40 mg PO DAILY Fluid 07/14/25 07/14/25 07/13/25 History
Retention/Swelling
levothyroxine 50 mcg tablet 50 mcg PO DAILY Thyroid 07/14/25 07/14/25 07/13/25 History
(Synthroid)
metoprolol succinate 25 mg 25 mg PO DAILY Heart Disease/BP 07/14/25 07/14/25 07/13/25 History
tablet,extended release 24 hr
(Toprol XL)
olanzapine 5 mg tablet 5 mg PO HS Mental Health/Anxiety 07/14/25 07/14/25 07/13/25 History
rosuvastatin 5 mg tablet (Crestor) 5 mg PO DAILY cholesterol 07/14/25 07/14/25 07/13/25 History
therapeutic multivitamin 1 tab PO DAILY Supplement 07/14/25 07/14/25 07/13/25 History
umeclidinium 62.5 mcg-vilanterol 1 inh inhalation R DAILY 07/14/25 07/14/25 Unknown History
25 mcg/actuation powdr for Lung/Breathing Issues
inhalation (Anoro Ellipta)
Active Medications
Generic Name Dose Route Start Last Admin
Trade Name Freq PRN Reason Stop Dose Admin
Amiodarone HCl 200 mg 07/15/25 08:00 07/15/25 07:28
Amiodarone 200 Mg Tablet PO 08/12/25 07:59 200 mg
DAILY EDGAR Administration
Apixaban 5 mg 07/14/25 20:00 07/15/25 07:28
Apixaban (Eliquis) 5 Mg Tablet PO 08/11/25 19:59 5 mg
BID EDGAR Administration
Furosemide 40 mg 07/14/25 16:00 07/15/25 07:28
Furosemide 40 Mg (10 Mg/Ml) 4 Ml Vial IV 08/11/25 15:59 40 mg
BID AT 0800,1600 EDGAR Administration
Heparin Sodium (Porcine) 500 unit 07/14/25 16:30 07/15/25 04:16
Heparin Flush Pf (100 Unit/Ml) 5 Ml Syringe IV 08/11/25 16:29 500 unit
PER PROTOCOL EDGAR Administration
Levothyroxine Sodium 50 mcg 07/15/25 06:00 07/15/25 06:15
Levothyroxine 50 Mcg Tablet PO 08/12/25 05:59 50 mcg
DAILY@0600 EDGAR Administration
Metoprolol Succinate 25 mg 07/15/25 08:00 07/15/25 07:28
Metoprolol 25 Mg Extended Release Tablet PO 08/12/25 07:59 25 mg
DAILY EDGAR Administration
Olodaterol 2 puff 07/15/25 08:00 07/15/25 08:53
Olodaterol (Striverdi Respimat) 2.5 Mcg Inhaler INH 08/12/25 07:59 2 puff
R DAILY EDGAR Administration
Rosuvastatin Calcium 5 mg 07/15/25 08:00 07/15/25 07:34
Rosuvastatin (Crestor) 5 Mg Tablet PO 08/12/25 07:59 5 mg
DAILY EDGAR Administration
Tiotropium [place] 2 puff 07/15/25 08:00 07/15/25 08:53
Tiotropium (Spiriva Respimat) 2.5 Mcg Inhaler INH 08/12/25 07:59 2 puff
R DAILY EDGAR Administration
Review of Systems
-
All Other Systems: Reviewed and Negative
Physical Exam
-
Physical examination shows the patient to be in no acute distress.
HEENT exam is unremarkable.
There are no palpable nodes.
Chest is clear but with some dullness at the left base.
The heart is regular with no murmur or gallop.
The abdomen is soft and nontender with no organomegaly or masses.
Extremities are unremarkable.
Neurologic is grossly intact.
Labs
Lab Results
WBC 1.1 10^3/uL (4.8-10.8) L* 07/15/25 04:17
RBC 2.61 10^6/uL (4.20-5.40) L 07/15/25 04:17
Hgb 8.3 g/dL (12.0-16.0) L 07/15/25 04:17
Hct 25.0 % (37.0-47.0) L 07/15/25 04:17
MCV 95.8 fL (81.0-99.0) 07/15/25 04:17
MCH 31.8 pg (27.0-31.0) H 07/15/25 04:17
MCHC 33.2 g/dL (33.0-37.0) 07/15/25 04:17
RDW 15.4 % (11.5-14.5) H 07/15/25 04:17
Plt Count 68 10^3/uL (130-400) L D 07/15/25 04:17
MPV 11.9 fL (7.4-10.4) H 07/15/25 04:17
Creatinine 1.3 mg/dL (0.6-1.0) H 07/15/25 04:17
Vital Signs
Vital Signs
Temp Pulse Resp BP Pulse Ox
97.8 F 70 16 129/79 94
07/15/25 07:11 07/15/25 08:58 07/15/25 08:58 07/15/25 07:08 07/15/25 07:11
--- NOTE | 2025-07-15 11:49 | W.PN.CARDCBS ---
Addendum entered and electronically signed by Ham Rainey MD 07/15/25 16:10:
I saw and examined the patient on morning rounds.
The Corporate Services Manager's note was reviewed and I agree with the note.
Comment: Briefly, 75-year-old woman past medical history of heart failure with preserved ejection fraction, bioprosthetic mitral valve, paroxysmal atrial fibrillation on Eliquis and lung cancer currently undergoing chemo/XRT who presents with
progressive dyspnea found to be in acute decompensated heart failure. Echocardiogram from 07/14/2025 reviewed showing severe bioprosthetic mitral valve stenosis. Ongoing evaluation with CT surgery at [facility], Dr. Holley, with eventual plan for redo
mitral valve replacement pending treatment of her malignancy.
At the time of my evaluation patient was reporting ongoing dyspnea and was hypoxic requiring 4 L supplemental O2 via nasal cannula
Agree with IV Lasix twice daily. Previously on 40 mg daily of p.o. Lasix. Suspect she will need to be discharged on 40 mg twice daily.
In regards to her mitral stenosis we will increase metoprolol dose to target a heart rate between 50 and 60 bpm and hopefully improve mean mitral gradient
Appreciate CT surgery input
Tentative plan to have her follow-up with her primary type photography supervisor and CT surgeon at [facility]
Original Note:
Today's Communication / Plan
-
continue IV diuresis
wean supp O2 as able
CT surgery evaluation
follow pancytopenia
in SR, on OAC
increase toprol to 25mg BID
Impression / Plan
-
Instructional Services Specialist: Dr. Alas of [place]
CT surgeon: Dr. Holley of [place]
Primary oncologist: Dr. Mallorie Ross of [facility]
Pulm: [place] [facility]
Impression:
Presented with worsening SOB
Acute on chronic HFpEF
Pancytopenia
Paroxysmal atrial fibrillation
s/p MAZE, MITZY ligation
chronic amiodarone therapy
Chronic OAC with Eliquis
s/p #29 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
Lung Cancer receiving XRT and chemo with carboplatin/etoposide
Graves Disease
COPD
HTN
HLD
DOUGLAS 10/03/2024 @[place]: EF 65%, well-seated bioprosthetic mitral valve with mild MR, moderate MS, trace AR, moderate to severe TR with moderate to severe pulmonary hypertension
Echo 07/14/2025: EF 60%, abnormal septal motion, dilated RV, status post #29 [facility] bioprosthetic mitral valve replacement with severe MS, peak/mean gradients 52/25 mmHg, severe TR with PAP 78 mmHg
Plan:
- complicated case
- obtained and reviewed cardiology note from 06/19/25, Dr. Dilip Alas
- She presents with worsening shortness of breath and acute on chronic CHF in setting of known worsening bioprosthetic MS and severe TR, which unfortunately workup had to be placed on hold due to new finding of lung cancer, of which she is currently
requiring chemotherapy and radiation therapy through [facility]
- She tells me she is scheduled to complete her chemo (carboplatin/etoposide) and radiation at the end of next week pending no changes to the schedule
- Echocardiogram 07/14 with preserved EF, but severe MS with peak/mean gradients 52/25 mmHg as well as severe TR with PAP is 78. Reviewed results of echo with patient 07/15
- Continue diuresis with IV Lasix 40 mg twice daily. Prior to admission had been on p.o. Lasix 40 twice daily however was decreased to 40 mg daily due to FERNANDO with improvement. Cr stable at 1.3.
- Wean supplemental oxygen as able, was not on prior to admission
- She reports a dry weight between 140 and 145 pounds, however if accurate 136 pounds today. Follow with diuresis
- given results of echo, will have CT surgery weigh in. may need DOUGLAS. her MVR was done in 2019 at [place] by Dr. Holley. will need multidisciplinary involvement to determine timing of redo MVR/TVR, if able. She reports previously being evaluated for
procedure through groin, presumably MitraClip, however states she was not felt to be a candidate, presumably due to MS.
- She is presently pancytopenic with WBC of 1.1, hemoglobin of 8.3, platelets of 68
- In sinus rhythm on review of telemetry overnight. Continue Amio 200 mg daily, Eliquis.
- will increase toprol dose to 25mg BID
- Discussed with nursing, CT surgical ART MUSEUM DOCENT, oncology
HPI: Natty is a 75 year old female with PMH of chronic HFpEF, paroxysmal atrial fibrillation, MVR, lung cancer, graves disease, COPD, HTN, and HLD. Presented to [facility] ER for evaluation of worsening shortness of breath over the past few days. She
first noticed symptoms over the weekend, and when she was leaving her radiation appt earlier today, became increasingly SOB and requested O2 therapy. Her oxygenation improved reportedly and she came to ER for evaluation. On arrival she was hypoxic
and had evidence of acute heart failure on chest xray and with proBNP 7950. She denies any weight gain noted as OP, but states she is typically between 140 and 145 lbs. Weight in ER noted to be elevated at 148 lbs. She denies any LE edema or chest
pain. Typically follows with cardiology at [place], Dr. Alas. Has known moderate bioprosthetic mitral valve stenosis. Has been referred to CT surgery, but plan was to focus on management/treatment of lung cancer and follow up for valve intervention
once in remission/improved from oncology viewpoint.
Progress Note - Instructional Services Specialist
Subjective
Date of Service: July 15, 2025
reports breathing at rest improving. remains with SOB with exertion
Objective
Labs:
07/15/25 04:17
07/15/25 04:17
Labs
Hgb 8.3 g/dL (12.0-16.0) L 07/15/25 04:17
Hct 25.0 % (37.0-47.0) L 07/15/25 04:17
Plt Count 68 10^3/uL (130-400) L D 07/15/25 04:17
Sodium 134 mmol/L (135-145) L 07/15/25 04:17
Potassium 3.9 mmol/L (3.5-5.1) 07/15/25 04:17
BUN 25 mg/dl (7-17) H 07/15/25 04:17
Creatinine 1.3 mg/dL (0.6-1.0) H 07/15/25 04:17
Glucose 102 mg/dl (70-99) H 07/15/25 04:17
Troponins
07/14/25
11:40
Troponin I 0.034
Vital Signs and I&O:
Vital Signs
Temp Pulse Resp BP Pulse Ox
97.8 F 70 16 129/79 94
07/15/25 07:11 07/15/25 08:58 07/15/25 08:58 07/15/25 07:08 07/15/25 07:11
Vital Signs
Temp Pulse Resp BP Pulse Ox
97.8 F 70 16 129/79 94
07/15/25 07:11 07/15/25 08:58 07/15/25 08:58 07/15/25 07:08 07/15/25 07:11
Intake & Output
07/13/25 07/14/25 07/15/25 07/16/25
07:59 07:59 07:59 07:59
Output Total 450 / 450
Balance -450 / -450
Physical Exam
Physical Exam
GEN: No distress, awake, alert, oriented x3. on supp O2
HEENT: supple, anicteric, mmm, eomi
LUNGS: Few crackles B/L bases, no wheezes
CV: Reg, S1/S2, 2/6 murmur
ABD: soft, BS+, NT/ND
EXT: No cyanosis, clubbing, edema
NEURO: Gross non-focal
SKIN: Warm, pink, dry. No rash
[2025-07-15 11:54] VITALS: BP 110/62
--- NOTE | 2025-07-15 12:18 | CM ---
Chart reviewed. Patient is independent of ADLS, lives alone in a 1sth, 2 BETTY, 0 DME. Patient with a supportive niece to assist. Patient may return to her niece's house when discharged. Patient unsure of what town, but close. CM to follow
--- NOTE | 2025-07-15 12:42 | CONSULT.CT ---
Consultation
-
Date/Time Consultation Requested: 07/15/25 12:00
Date/Time Consultation Performed: 07/15/25 12:40
Requesting Provider: Lanie Kaye PA-C
Performing Provider: Kevyn Mccall PA-C
Reason for Consultation: bioprosthetic MS/TR
Patient History
History of Present Illness
Patient is a 75 y/o female past medical history of small cell lung cancer currently undergoing chemotherapy and radiation, paroxysmal atrial fibrillation, chronic heart failure, valvular heart disease (s/p 29mm [facility] bioprosthetic mitral valve
replacement, MAZE, and left atrial appendage ligation in 2019), chronic kidney disease, and graves disease who presented to the ED with increased shortness of breath after radiation. Patient reports increased dyspnea on exertion. She reports
symptoms resolve with rest. She reports right sided back pain but denies chest pain, palpitations, lower extremity edema, changes in weight, cough, or fever. She reports her Lasix dose was decreased from twice a day to once a day about 2-3 weeks
ago.
Past Medical History
Past Medical History: Atrial Fib, Cancer (LLL small cell (T1N0M0)), CHF, COPD, Hypothyroidism, Radiation, Renal Insufficiency and Valvular Disease
Past Surgical History
Past Surgical History: Valve (MVR/MAZE/LAAL)
Social History
Alcohol: Occasional
Tobacco: Former Smoker
Allergies
Allergy/AdvReac Type Severity Reaction Status Date / Time
No Known Allergies Allergy Unverified 07/14/25 10:50
Home Medications
�Medication �Instructions �Recorded �Confirmed �Type
amiodarone 200 mg tablet 200 mg PO DAILY Arrhythmia 07/14/25 07/14/25 History
apixaban 5 mg tablet (Eliquis) 5 mg PO BID Blood Clot 07/14/25 07/14/25 History
Prevention/Tx
calcium carbonate 500 mg PO DAILY Supplement 07/14/25 07/14/25 History
cyclobenzaprine 5 mg tablet 5 mg PO TIDPRN PRN spasms 07/14/25 07/14/25 History
furosemide 40 mg tablet (Lasix) 40 mg PO DAILY Fluid 07/14/25 07/14/25 History
Retention/Swelling
levothyroxine 50 mcg tablet 50 mcg PO DAILY Thyroid 07/14/25 07/14/25 History
(Synthroid)
metoprolol succinate 25 mg 25 mg PO DAILY Heart Disease/BP 07/14/25 07/14/25 History
tablet,extended release 24 hr
(Toprol XL)
olanzapine 5 mg tablet 5 mg PO HS Mental Health/Anxiety 07/14/25 07/14/25 History
rosuvastatin 5 mg tablet (Crestor) 5 mg PO DAILY cholesterol 07/14/25 07/14/25 History
therapeutic multivitamin 1 tab PO DAILY Supplement 07/14/25 07/14/25 History
umeclidinium 62.5 mcg-vilanterol 1 inh inhalation R DAILY 07/14/25 07/14/25 History
25 mcg/actuation powdr for Lung/Breathing Issues
inhalation (Anoro Ellipta)
Review of Systems
-
History Source: Patient and Transfer Record
General: Reports Weight Gain; Denies Fever or Weight Loss
HEENT: Denies Visual Changes, Sore Throat or Mouth Pain
Respiratory: Reports LAGOS; Denies Cough
Cardiac: Denies Chest Pain, Palpitations or Edema
Abdomen/GI: Denies Nausea, Vomiting, Diarrhea or Black Stools
: Denies Frequency, Urgency or Frequency
Musculoskeletal: Denies Joint Pain
Skin: Denies Rash
Neurological: Denies Headaches, Syncope or Dizzy
Vascular: Denies Claudication
Physical Exam
Vital Signs
Temp 98 F 07/15/25 12:16
Temp route: Oral 07/15/25 12:16
Pulse 84 07/15/25 12:16
Rhythm: Normal sinus rhythm 07/14/25 21:25
Resp Rate 18 07/15/25 12:16
Blood pressure 129/79 07/15/25 07:08
Blood pressure extremity used: Right upper arm 07/15/25 12:16
Position: Sitting 07/15/25 12:16
MAP (cuff-Monique Monitor) 94 07/15/25 07:08
SaO2 93 07/15/25 12:16
Nasal Cannula flow liters per minute 4 07/15/25 07:11
Oxygen Mode of Delivery Room air 07/15/25 12:16
Acceptable pain level during hospitalization? 0 07/14/25 10:50
Can the patient verbally communicate their pain? Yes 07/14/25 16:52
Actual Weight 61.7 kg 07/15/25 06:00
Body Mass Index (BMI) 22.6 07/15/25 06:00
Labs
07/15/25 04:17
07/15/25 04:17
Troponin I 0.034 ng/ml 07/14/25 11:40
Nin-O-Uhzdtnphkoc Pept 7950 pg/ml 07/14/25 11:40
Exam
General: No Apparent Distress and Other (appears frail)
HEENT: Normocephalic and Anicteric
Respiratory: Crackles (b/l bases and throughout right side)
Cardiac: Regular Rhythm and Murmur (2/6 systolic)
GI: Non Tender and Non Distended
Rectal: Deferred by Provider
Skin: Warm; Negative Rash
Neuro: AO x 3
Extremities: Negative Lower Level Edema
Psych: Calm
Assessment / Plan
-
Chronic HFpEF
bioprosthetic MS/TR
Paroxysmal Atrial Fibrillation s/p MITZY ligation and MAZE procedure on Eliquis
Small Cell Lung Cancer (LLL T1N0M0) undergoing chemo/XRT
COPD
Pulmonary Hypertension
Essential Hypertension
Hyperlipidemia
CKD Stage III
Graves Disease
Plan:
Patient was discussed with Dr. Kaba who reviewed her labratory data, transfer records, and TTE. Given her ongoing chemo/XRT with leukopenia, it would be best to medically manage her heart failure and complete her oncology treatments. She should
follow up with her outpatient tool filer after her recovery from such. Dr. Kaba communicated with Dr. Beckwith. Will most likely need an surgical MVR +/- TVrepair.
Data Reviewed
-
Echo: Discussed with Physician
Labs: Labs Reviewed by me and Discussed with Physician
Old Records: Reviewed
[2025-07-15 14:12] LABS: COVID-19 Antigen Negative (Negative)
[2025-07-15 15:58] VITALS: BP 110/60
[2025-07-15] MEDS: FLUSH (NSS) 1 FLUSH IV (16:15)
--- NOTE | 2025-07-15 17:00 | PTCARENOTE ---
Pt received this am in SR, rate in the 70's to 90's. Remains on 4LNC, sat 94%. Pt c/o of mild LAGOS when going to the BR.
[2025-07-15 19:30] VITALS: BP 98/53
[2025-07-15] MEDS: TOPROL XL 50 MG PO (19:32)
[2025-07-15 19:39] VITALS: BP 98/53
--- NOTE | 2025-07-15 20:00 | PTCARENOTE ---
Assumed care of patient at 1900. Patient found resting in bed at time of assessment with niece at bedside. Patient is AOx4, follows commands appropriately, moves all extremities. Lung sounds have crackles in the bases, patient reports SOB while
ambulating, 96% on 4L. Heart sounds are audible, patient is SR, normal palpable pulses, and no observable edmea. Patient has active BS and voids in bathroom. Skin grossly intact. Patient has L SQ port accessed available for intermittent infusion.
Call garnica within reach.
[2025-07-16] VITALS (10 sets, daily range): BP systolic 86–125; BP diastolic 39–70; BMI 22.6
[2025-07-16] MEDS: SYNTHROID 50 MCG PO (05:01)
--- NOTE | 2025-07-16 05:51 | PTCARENOTE ---
Patient reassessed. G bath provided. Labs obtained. Low BPs noted overnight SBP in high 80s however patient asymptomatic. Low UOP for 24 hr period noted bladderscan performed post void showing 0 residual. All other vital signs stable.
[2025-07-16 06:19] LABS: Blood Urea Nitrogen 28 mg/dl (7-17); Calcium 8.9 mg/dl (8.4-10.2); Chloride 94 mmol/L (98-107); Estimated Creatinine Clearance 32 ml/min; Glucose 106 mg/dl (70-99); Hematocrit 27.1 % (37.0-47.0); Hemoglobin 9.1 g/dL (12.0-16.0); Mean Corp Hgb Conc. 33.6 g/dL (33.0-37.0); Mean Corpuscular Volume 96.8 fL (81.0-99.0); Platelet Count 89 10^3/uL (130-400); Potassium 4.0 mmol/L (3.5-5.1); Red Cell Dist. Width 15.5 % (11.5-14.5); Sodium 133 mmol/L (135-145); eGFR 39.73
[2025-07-16 06:27] LABS: Carbon Dioxide 32 mmol/L (22-30)
[2025-07-16 06:44] LABS: Normal RBC Morphology No; Platelets Checked Yes
[2025-07-16 06:45] LABS: Anisocytosis 1+; Hypochromasia 1+; Polychromasia 1+; Total Cells Counted 100
[2025-07-16 06:46] LABS: Absolute Neutrophils -Man Diff 0.5 10^3/uL (1.4-6.5)
[2025-07-16] MEDS: STRIVERDI RESPIMAT 2 PUFF INH (07:22)
[2025-07-16] MEDS: SPIRIVA RESPIMAT 2.5 MCG 2 PUFF INH (07:22)
[2025-07-16] MEDS: CRESTOR 5 MG PO (09:19)
[2025-07-16] MEDS: PACERONE 200 MG PO (09:19)
[2025-07-16] MEDS: ELIQUIS 5 MG PO ×2 (09:20→20:21)
--- NOTE | 2025-07-16 09:47 | W.PN.CARDCBS ---
Addendum entered and electronically signed by Ham Rainey MD 07/16/25 10:08:
I saw and examined the patient.
The Adult Daycare Coordinator's note was reviewed and I agree with the note.
Comment: Briefly, 75-year-old woman past medical history of heart failure with preserved ejection fraction, bioprosthetic mitral valve, paroxysmal atrial fibrillation on Eliquis and lung cancer currently undergoing chemo/XRT who presents with
progressive dyspnea found to be in acute decompensated heart failure. Echocardiogram from 07/14/2025 reviewed showing severe bioprosthetic mitral valve stenosis. Ongoing evaluation with CT surgery at [facility], Dr. Holley, with eventual plan for redo
mitral valve replacement pending treatment of her malignancy.
Still experiencing dyspnea on exertion but O2 requirement improving now on to 2 L via NC
Would continue IV Lasix twice daily. Previously on 40 mg daily of p.o. Lasix. Suspect she will need to be discharged on 40 mg twice daily.
In regards to her mitral stenosis, home metoprolol dose was increased, would target a heart rate between 50 and 60 bpm to hopefully improve mean mitral gradient
Will need outpatient follow-up with her primary escrow assistant and CT surgeon at [facility]
Original Note:
Today's Communication / Plan
-
Continue diuresis
Follow creatinine
Wean supplemental oxygen
In sinus rhythm on Toprol, amiodarone
Plan for expedited outpatient evaluation for MVR plus minus TVR through [place] once oncologic treatment completed
Impression / Plan
-
Mat Puncher: Dr. Dilip Alas of [place]
CT surgeon: Dr. Stephen Holley of [place]
Primary oncologist: Dr. Mallorie Ross of [facility]
Pulm: [place] [facility]
Impression:
Presented with worsening SOB
Acute on chronic HFpEF
Pancytopenia
Paroxysmal atrial fibrillation
s/p MAZE, MITZY ligation
chronic amiodarone therapy
Chronic OAC with Eliquis
s/p #29 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
Lung Cancer receiving XRT and chemo with carboplatin/etoposide
Graves Disease
COPD
HTN
HLD
DOUGLAS 10/03/2024 @[place]: EF 65%, well-seated bioprosthetic mitral valve with mild MR, moderate MS, trace AR, moderate to severe TR with moderate to severe pulmonary hypertension
Echo 07/14/2025: EF 60%, abnormal septal motion, dilated RV, status post #29 [facility] bioprosthetic mitral valve replacement with severe MS, peak/mean gradients 52/25 mmHg, severe TR with PAP 78 mmHg
Plan:
- complicated case
- She presents with worsening shortness of breath and acute on chronic CHF in setting of known worsening bioprosthetic MS and severe TR, which unfortunately workup had to be placed on hold due to new finding of lung cancer, of which she is currently
requiring chemotherapy and radiation therapy through [facility]
- she is scheduled to complete her chemo (carboplatin/etoposide) and radiation at the end of next week pending no changes to the schedule
- Echocardiogram 07/14 with preserved EF, but severe MS with peak/mean gradients 52/25 mmHg as well as severe TR with PAP is 78. Reviewed results of echo with patient 07/15
- Continue diuresis with IV Lasix 40 mg twice daily, weight down trending if accurate. reports still with LAGOS. we discussed this may also be in part related to valve disease, not just acute CHF. Prior to admission had been on p.o. Lasix 40 twice
daily however was decreased to 40 mg daily due to FERNANDO with improvement. Cr up slightly to 1.4.
- Weaning supplemental oxygen as able, currently on 2L, was not on prior to admission
- She reports a dry weight between 140 and 145 pounds, however 135 pounds today. Follow with diuresis
- appreciate CT surgery input. her MVR was done in [address] [place] [address] Holley. will need multidisciplinary involvement to determine timing of redo MVR +/-TVR. She reports previously being evaluated for procedure through groin, presumably MitraClip,
however states she was not felt to be a candidate, presumably due to MS.
- She is presently pancytopenic. oncology following
- In sinus rhythm on review of telemetry overnight. Continue Amio 200 mg daily, Eliquis.
- toprol dose uptitrated to 50mg BID this admission as aiming for target HR of 50-60 in setting of MS
HPI: Natty is a 75 year old female with PMH of chronic HFpEF, paroxysmal atrial fibrillation, MVR, lung cancer, graves disease, COPD, HTN, and HLD. Presented to [facility] ER for evaluation of worsening shortness of breath over the past few days. She
first noticed symptoms over the weekend, and when she was leaving her radiation appt earlier today, became increasingly SOB and requested O2 therapy. Her oxygenation improved reportedly and she came to ER for evaluation. On arrival she was hypoxic
and had evidence of acute heart failure on chest xray and with proBNP 7950. She denies any weight gain noted as OP, but states she is typically between 140 and 145 lbs. Weight in ER noted to be elevated at 148 lbs. She denies any LE edema or chest
pain. Typically follows with cardiology at [place], Dr. Alas. Has known moderate bioprosthetic mitral valve stenosis. Has been referred to CT surgery, but plan was to focus on management/treatment of lung cancer and follow up for valve intervention
once in remission/improved from oncology viewpoint.
Progress Note - Mat Puncher
Subjective
Date of Service: July 16, 2025
Denies significant urine output overnight. Reports still remains short of breath with exertion
Objective
Labs:
07/16/25 05:11
07/16/25 05:11
Labs
Hgb 9.1 g/dL (12.0-16.0) L 07/16/25 05:11
Hct 27.1 % (37.0-47.0) L 07/16/25 05:11
Plt Count 89 10^3/uL (130-400) L D 07/16/25 05:11
Sodium 133 mmol/L (135-145) L 07/16/25 05:11
Potassium 4.0 mmol/L (3.5-5.1) 07/16/25 05:11
BUN 28 mg/dl (7-17) H 07/16/25 05:11
Creatinine 1.4 mg/dL (0.6-1.0) H 07/16/25 05:11
Glucose 106 mg/dl (70-99) H 07/16/25 05:11
Troponins
07/14/25
11:40
Troponin I 0.034
Vital Signs and I&O:
Vital Signs
Temp Pulse Resp BP Pulse Ox
97.5 F 70 18 105/61 92
07/16/25 08:00 07/16/25 09:20 07/16/25 08:00 07/16/25 09:20 07/16/25 09:11
Vital Signs
Temp Pulse Resp BP Pulse Ox
97.5 F 70 18 105/61 92
07/16/25 08:00 07/16/25 09:20 07/16/25 08:00 07/16/25 09:20 07/16/25 09:11
Intake & Output
07/14/25 07/15/25 07/16/25 07/17/25
07:59 07:59 07:59 07:59
Intake Total 120 / 120
Output Total 450 / 450 400 / 400
Balance -450 / -450 -400 / -400 120 / 120
Physical Exam
Physical Exam
GEN: No distress, awake, alert, oriented x3. on supp O2
HEENT: supple, anicteric, mmm, eomi
LUNGS: Few crackles B/L bases, no wheezes
CV: Reg, S1/S2, 2/6 murmur
ABD: soft, BS+, NT/ND
EXT: No cyanosis, clubbing, edema
NEURO: Gross non-focal
SKIN: Warm, pink, dry. No rash
[2025-07-16] MEDS: TOPROL XL PO ×2 (10:19→22:47)
[2025-07-16] MEDS: TOPROL XL 50 MG PO (10:19)
[2025-07-16] MEDS: LASIX 40 MG IV ×2 (10:20→16:58)
--- NOTE | 2025-07-16 12:27 | CM ---
Chart reviewed. Patient lying in bed. Patient is independent of ADLS, lives alone in a 1 STH, 2 BETTY, 0 DME. Patient is going to live with her niece when she is medically stable for discharge. CM to follow
--- NOTE | 2025-07-16 13:53 | W.PN.HOSP.TC ---
Today's Communication/Plan
-
Continue diuresis
Monitor kidney function
Assessment / Plan
Assessment / Plan
Impression:
Patient is a 75 y/o female past medical history of small cell lung cancer currently undergoing chemotherapy and radiation, paroxysmal atrial fibrillation, chronic heart failure, valvular heart disease, chronic kidney disease, and graves disease who
presents with increased shortness of breath. Patient reports increased dyspnea on exertion since this morning. She reports symptoms resolve with rest. She denies chest pain, palpitations, lower extremity edema, changes in weight, cough, or fever.
She reports her Lasix dose was decreased from twice a day to once a day about 2-3 weeks ago.
Patient treated for CHF admitted initially to telemetry floor, echocardiogram done shows severe mitral stenosis and tricuspid regurg with elevated pulmonary pressure, cardiology recommending transfer to IVU, continued on IV Lasix, consulted
cardiology and oncology.
Cardiology recommending to continue iv Lasix.
Assessment/plan:
Acute hypoxic respiratory failure, multifactorial.
Secondary acute on Chronic HFpEF with underlying lung cancer diagnosis
Patient presented with shortness of breath.
NT-proBNP: 7,950 (previously 479 in Mar 2025).
Troponin level is 0.034
Continue IV diuresing in form of Lasix 40 mg twice daily
Daily weight.
Strict I's and O's.
Consulted cardiology.
Most recent echo shows :
Echo (Sep 2024): Mildly increased LV wall thickness (mild concentric hypertrophy), no segmental wall motion abnormalities, LVEF 65%. Bioprosthetic mitral valve with mild MR and moderate MS.
Repeat echocardiogram 07/14 done shows:
1. Normal left ventricular size and function./ LVEF 60% visually. Abnormal septal motion.
2. Dilated right ventricle with grossly normal right ventricle systolic function.
3. S/p mitral valve replacement #29 [facility] Bioprosthetic. Severe mitral stenosis. Peak/Mean gradients 52/25 mmHg.
4. Severe tricuspid regurgitation with estimated pulmonary artery pressure 78 mmHg assuming right atrial pressure of 3 mmHg.
5. No prior study for comparison.
07/15
Shortness of breath improved but still with exertion.
Continue diuretic
Cardiology increased Toprol.
Severe mitral stenosis/severe tricuspid regurg.
As above.
Cardiology consulted
CT surgery consulted.
Advised to continue medical treatment for now and patient will likely need an surgical mitral valve and tricuspid valve surgery as outpatient after finishing her chemotherapy and radiation.
Chemo-Induced Pancytopenia
Consulted Hematology.
Monitor blood counts closely.
Esophageal dysphagia.
Started 1 to 2 days ago
Consider imaging if persist
Small Cell Lung Cancer
Receives treatment at [facility].
Most recent chemotherapy: Jul 02.
Most recent radiation: Jul 14.
Plan: Continue oncology follow-up.
COPD (No acute exacerbation)
Plan: Continue Anoro Ellipta.
Paroxysmal Atrial Fibrillation (s/p MITZY ligation & MAZE)
Continue Eliquis for anticoagulation.
Continue amiodarone and metoprolol for rate/rhythm control.
Essential Hypertension
Plan: Continue metoprolol with hold parameters.
Hyperlipidemia
Plan: Continue Crestor.
CKD Stage III
Creatinine at baseline.
Plan: Monitor renal function closely while on diuretics.
History of Graves Disease
Plan: Continue levothyroxine.
History of Bioprosthetic Mitral Valve Replacement (2019)
DVT Prophylaxis: Eliquis
Code Status: Full Code
Diet: 2 gram NA diet
Disposition: Continue diuresis
Monitor kidney function
Total time spent on today's encounter was 55 minutes which included time spent in counseling the patient/family regarding diagnosis and treatment plan as listed above, goals of care, and symptom management. Case was discussed with nursing staff,
specialists, and care coordinators/case management. All labs and imaging personally reviewed by me. Remainder the time spent in detailed review of previous records, lab data, imaging, and other medical provider documentation.
Anticipated Discharge: 24 - 48 hours
Subjective/Interval History
-
Date of Service: July 16, 2025
Patient seen and examined at bedside, denies any chest pain or shortness of breath at rest, still short of breath with exertion, no abdominal pain, no nausea, no vomiting, no diarrhea or constipation.
Patient was complaining of dysphagia.
Objective Data
-
Labs:
Laboratory Results
07/16/25
05:11
WBC 1.9 L*
Hgb 9.1 L
Hct 27.1 L
Plt Count 89 L D
Sodium 133 L
Potassium 4.0
Chloride 94 L
Carbon Dioxide 32 H
BUN 28 H
Creatinine 1.4 H
Glucose 106 H
Calcium 8.9
Vital Signs:
Vital Signs
Temp Pulse Resp BP Pulse Ox
97.7 F 69 18 91/39 93
07/16/25 11:37 07/16/25 12:00 07/16/25 11:37 07/16/25 11:35 07/16/25 12:09
I&O
07/15/25 07/16/25 07/17/25
06:59 06:59 06:59
Intake Total 120 / 120
Output Total 450 / 450 400 / 400 250 / 250
Balance -450 / -450 -400 / -400 -130 / -130
Physical Exam
-
General: Well Developed, Well Nourished, No Apparent Distress and Comfortable
HEENT: Normocephalic, Atraumatic, Moist Mucous Membranes, No Ptosis, PERRLA and Nose Appears Normal
Respiratory: Rales, Rhonchi and Non Labored Respirations
Cardiac: Regular Rhythm and S1/S2
Breast: Deferred by me
GI: Soft, Nontender, Nondistended and Normal Bowel Sounds
Genito-urinary: No Costovertebral Tender
Musculoskeletal: No Clubbing, No Cyanosis and No Edema
Skin: Warm
Neuro: Awake, Alert, Oriented, AO x 3 and No Motor Deficits
Psych: Calm
--- NOTE | 2025-07-16 19:52 | PTCARENOTE ---
Pt up independently to bathroom, voiding dion urine. Pt remains LAGOS , oxygen at 2L with sat's of 92-98 at times. Pt appears SOB at rest. Telemetry shows sinus rhythm, SBP's @105. Plan to reinforce CHF teaching.
--- NOTE | 2025-07-16 20:00 | PTCARENOTE ---
Assumed care of patient at change of shift. Patient sitting on side of bed, AAOx3. Sinus rhythm on tele, BP 95/54, 96% on 2L O2 - fine crackles b/l bases. Patient denies complaints or shortness of breath. Family in room, plan of care discussed,
call garnica within reach.
[2025-07-17 04:09] VITALS: BP 91/43
[2025-07-17] MEDS: SYNTHROID 50 MCG PO (04:13)
[2025-07-17 04:46] VITALS: BMI 22.5
[2025-07-17 05:14] LABS: Blood Urea Nitrogen 30 mg/dl (7-17); Calcium 8.6 mg/dl (8.4-10.2); Carbon Dioxide 30 mmol/L (22-30); Chloride 94 mmol/L (98-107); Estimated Creatinine Clearance 30 ml/min; Glucose 95 mg/dl (70-99); Potassium 3.8 mmol/L (3.5-5.1); Sodium 134 mmol/L (135-145); eGFR 36.57
[2025-07-17 05:37] LABS: Hematocrit 25.6 % (37.0-47.0); Hemoglobin 8.3 g/dL (12.0-16.0); Mean Corp Hgb Conc. 32.4 g/dL (33.0-37.0); Mean Corpuscular Volume 97.7 fL (81.0-99.0); Platelet Count 109 10^3/uL (130-400); Red Cell Dist. Width 15.9 % (11.5-14.5)
[2025-07-17 06:30] LABS: Nucleated Red Blood Cells % 0.8 %
[2025-07-17 07:34] VITALS: BP 114/62
[2025-07-17] MEDS: STRIVERDI RESPIMAT 2 PUFF INH (09:19)
[2025-07-17] MEDS: SPIRIVA RESPIMAT 2.5 MCG 2 PUFF INH (09:20)
--- NOTE | 2025-07-17 09:21 | W.PN.ONC ---
Today's Communication / Plan
-
ANC improved to 1.1 and platelet count 109K
Anticipates continuation of radiation therapy and chemo with [facility]
Impression
Impression
Severe neutropenia with anemia and thrombocytopenia due to chemotherapy and radiation therapy
Small cell lung carcinoma limited
Congestive heart failure
Bioprosthetic mitral valve stenosis
Subjective/Objective
Subjective/Objective
No new complaints today.
Vital Signs:
Vital Signs
Temp Pulse Resp BP Pulse Ox
97.2 F 68 20 91/43 97
07/17/25 07:35 07/17/25 04:30 07/17/25 07:35 07/17/25 04:09 07/17/25 07:35
Physical exam unchanged
Lab Results:
Laboratory Data
WBC 2.4 10^3/uL (4.8-10.8) L* 07/17/25 04:21
Hgb 8.3 g/dL (12.0-16.0) L 07/17/25 04:21
Plt Count 109 10^3/uL (130-400) L D 07/17/25 04:21
eGFR 36.57 07/17/25 04:21
[2025-07-17] MEDS: TOPROL XL 50 MG PO (09:29)
[2025-07-17] MEDS: ELIQUIS 5 MG PO ×2 (09:30→19:43)
[2025-07-17] MEDS: PACERONE 200 MG PO (09:30)
[2025-07-17] MEDS: CRESTOR 5 MG PO (09:31)
--- NOTE | 2025-07-17 09:41 | W.PN.CARDCBS ---
Addendum entered and electronically signed by Uvaldo Terry MD 07/17/25 10:26:
I saw and examined the patient.
The Director [facility]'s note was reviewed and I agree with the note.
Comment:
GEN: No distress, awake, Ox3
HEENT: supple, anicteric, mmm
LUNGS: CTA, no wheezes/rales
CV: Reg, S1/S2, 2/6 syst LSB, S3+
ABD: soft, BS+, NT/ND
EXT: trace edema
NEURO: Gross non-focal
SKIN: No rash
PLan:
Very difficult case. Patient with severe bioprosthetic mitral valve stenosis with a mean gradient of 25 and severe pulmonary hypertension. She has diuresed some but still has some baseline shortness of breath.
Would diurese for another 24 hours and switch to Lasix 40 mg p.o. twice daily and hopefully she can remain stable enough to get her final treatments of chemotherapy and radiation for her lung cancer.
Ultimately though she clearly needs a redo mitral valve replacement/tricuspid valve with [facility].
Her creatinine is up to 1.5. Continue to follow closely.
Her hemoglobin is stable at 8.3 and platelet count improved to 109,000.
She remains in sinus rhythm. Continue amiodarone and Eliquis.
She will be very high risk for readmission.
Addendum entered and electronically signed by Lanie Kaye PA-C 07/17/25 10:17:
will IV lasix today and transition to po lasix 40mg BID in AM. she is very ill and is high risk for readmission. needs close follow up with [facility] and [facility], as will need valve done as soon as feasible.
Original Note:
Today's Communication / Plan
-
eval for home O2
consider transition to po lasix 40mg BID
proBNP/BMP in 1 week
consider reduction in toprol dose to 50mg daily given PM hypotension
needs follow up with Drs. Alas/Kishan to determine safe timing of MVR +/- TVR once chemo/radiation completed
Impression / Plan
-
Inpatient Care Manager Rn: Dr. Dilip Alas of [facility]
CT surgeon: Dr. Stephen Holley of [facility]
Primary oncologist: Dr. Mallorie Ross of [facility]
Pulm: [facility]
Impression:
Presented with worsening SOB
Acute on chronic HFpEF
Pancytopenia
Paroxysmal atrial fibrillation
s/p MAZE, MITZY ligation
chronic amiodarone therapy
Chronic OAC with Eliquis
s/p #29 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
Lung Cancer receiving XRT and chemo with carboplatin/etoposide
Graves Disease
COPD
HTN
HLD
DOUGLAS 10/03/2024 @[facility]: EF 65%, well-seated bioprosthetic mitral valve with mild MR, moderate MS, trace AR, moderate to severe TR with moderate to severe pulmonary hypertension
Echo 07/14/2025: EF 60%, abnormal septal motion, dilated RV, status post #29 [facility] bioprosthetic mitral valve replacement with severe MS, peak/mean gradients 52/25 mmHg, severe TR with PAP 78 mmHg
Plan:
- complicated case
- She presents with worsening shortness of breath and acute on chronic CHF in setting of known worsening bioprosthetic MS and severe TR, which unfortunately workup had to be placed on hold due to new finding of lung cancer, of which she is currently
requiring chemotherapy and radiation therapy through [facility]
- she is scheduled to complete her chemo (carboplatin/etoposide) and radiation at the end of next week pending no changes to the schedule
- Echocardiogram 07/14 with preserved EF, but severe MS with peak/mean gradients 52/25 mmHg as well as severe TR with PAP is 78. Reviewed results of echo with patient 07/15
- with diuresis, weights down 5 pounds since admission if accurate. still with some LAGOS, however Cr uptrending 1.5 on 07/17. trialing off supp O2. we discussed this may also be in part related to severe valve disease, not just acute CHF. Prior to
admission had been on p.o. Lasix 40 twice daily however was decreased to 40 mg daily due to FERNANDO with improvement. may need to allow for degree of renal insufficiency to keep patient euvolemic for now
- eval for home O2
- appreciate CT surgery input. her MVR was done in [address] at [facility] [address] Holley. will need multidisciplinary involvement to determine timing of redo MVR +/-TVR. She reports previously being evaluated for procedure through groin, presumably MitraClip,
however states she was not felt to be a candidate, presumably due to MS.
- She is presently pancytopenic. oncology following. plts improving from admission
- In sinus rhythm on review of telemetry overnight. Continue Amio 200 mg daily, Eliquis.
- toprol dose uptitrated to 50mg QAM ang 25mg QPM in attempt to achieve target HR in 50-60 in setting of severe MS however hypotension is limiting administration. may need to decrease to 50mg daily as hypotension appears to be mostly overnight
- will arrange OP follow up with Drs. Alas/Kishan
- d/w nursing
HPI: Natty is a 75 year old female with PMH of chronic HFpEF, paroxysmal atrial fibrillation, MVR, lung cancer, graves disease, COPD, HTN, and HLD. Presented to [facility] ER for evaluation of worsening shortness of breath over the past few days. She
first noticed symptoms over the weekend, and when she was leaving her radiation appt earlier today, became increasingly SOB and requested O2 therapy. Her oxygenation improved reportedly and she came to ER for evaluation. On arrival she was hypoxic
and had evidence of acute heart failure on chest xray and with proBNP 7950. She denies any weight gain noted as OP, but states she is typically between 140 and 145 lbs. Weight in ER noted to be elevated at 148 lbs. She denies any LE edema or chest
pain. Typically follows with cardiology at [facility], Dr. Alas. Has known moderate bioprosthetic mitral valve stenosis. Has been referred to CT surgery, but plan was to focus on management/treatment of lung cancer and follow up for valve intervention
once in remission/improved from oncology viewpoint.
Progress Note - Inpatient Care Manager Rn
Subjective
Date of Service: July 17, 2025
Reports remains with some dyspnea on exertion.
Objective
Labs:
07/17/25 04:21
07/17/25 04:21
Labs
Hgb 8.3 g/dL (12.0-16.0) L 07/17/25 04:21
Hct 25.6 % (37.0-47.0) L 07/17/25 04:21
Plt Count 109 10^3/uL (130-400) L D 07/17/25 04:21
Sodium 134 mmol/L (135-145) L 07/17/25 04:21
Potassium 3.8 mmol/L (3.5-5.1) 07/17/25 04:21
BUN 30 mg/dl (7-17) H 07/17/25 04:21
Creatinine 1.5 mg/dL (0.6-1.0) H 07/17/25 04:21
Glucose 95 mg/dl (70-99) 07/17/25 04:21
Troponins
07/14/25
11:40
Troponin I 0.034
Vital Signs and I&O:
Vital Signs
Temp Pulse Resp BP Pulse Ox
97.2 F 70 16 114/62 92
07/17/25 07:35 07/17/25 09:29 07/17/25 09:22 07/17/25 09:29 07/17/25 09:39
Vital Signs
Temp Pulse Resp BP Pulse Ox
97.2 F 70 16 114/62 92
07/17/25 07:35 07/17/25 09:29 07/17/25 09:22 07/17/25 09:29 07/17/25 09:39
Intake & Output
07/15/25 07/16/25 07/17/25 07/18/25
07:59 07:59 07:59 07:59
Intake Total 360 / 360 180 / 180
Output Total 450 / 450 400 / 400 675 / 675 100 / 100
Balance -450 / -450 -400 / -400 -315 / -315 80 / 80
Physical Exam
Physical Exam
GEN: No distress, awake, alert, oriented x3.
HEENT: supple, anicteric, mmm, eomi
LUNGS: CTA B/L, no wheezes
CV: Reg, S1/S2, 2/6 murmur
ABD: soft, BS+, NT/ND
EXT: No cyanosis, clubbing, edema
NEURO: Gross non-focal
SKIN: Warm, pink, dry. No rash
[2025-07-17] MEDS: LASIX 40 MG IV ×2 (10:54→15:17)
[2025-07-17 11:06] VITALS: BP 107/57
--- NOTE | 2025-07-17 13:57 | W.PN.HOSP.TC ---
Today's Communication/Plan
-
Continue diuresis
Monitor kidney function
Discharge home tomorrow, will need home oxygen
Assessment / Plan
Assessment / Plan
Impression:
Patient is a 75 y/o female past medical history of small cell lung cancer currently undergoing chemotherapy and radiation, paroxysmal atrial fibrillation, chronic heart failure, valvular heart disease, chronic kidney disease, and graves disease who
presents with increased shortness of breath. Patient reports increased dyspnea on exertion since this morning. She reports symptoms resolve with rest. She denies chest pain, palpitations, lower extremity edema, changes in weight, cough, or fever.
She reports her Lasix dose was decreased from twice a day to once a day about 2-3 weeks ago.
Patient treated for CHF admitted initially to telemetry floor, echocardiogram done shows severe mitral stenosis and tricuspid regurg with elevated pulmonary pressure, cardiology recommending transfer to IVU, continued on IV Lasix, consulted
cardiology and oncology.
Cardiology recommending to continue iv Lasix.
Patient qualified for home oxygen
Assessment/plan:
Acute hypoxic respiratory failure, multifactorial.
Secondary acute on Chronic HFpEF with underlying lung cancer diagnosis
Patient presented with shortness of breath.
NT-proBNP: 7,950 (previously 479 in Mar 2025).
Troponin level is 0.034
Continue IV diuresing in form of Lasix 40 mg twice daily
Daily weight.
Strict I's and O's.
Consulted cardiology.
Most recent echo shows :
Echo (Sep 2024): Mildly increased LV wall thickness (mild concentric hypertrophy), no segmental wall motion abnormalities, LVEF 65%. Bioprosthetic mitral valve with mild MR and moderate MS.
Repeat echocardiogram 07/14 done shows:
1. Normal left ventricular size and function./ LVEF 60% visually. Abnormal septal motion.
2. Dilated right ventricle with grossly normal right ventricle systolic function.
3. S/p mitral valve replacement #29 [facility] Bioprosthetic. Severe mitral stenosis. Peak/Mean gradients 52/25 mmHg.
4. Severe tricuspid regurgitation with estimated pulmonary artery pressure 78 mmHg assuming right atrial pressure of 3 mmHg.
5. No prior study for comparison.
07/15
Shortness of breath improved but still with exertion.
Continue diuretic
Cardiology increased Toprol.
07/17
Patient qualified for home oxygen
Severe mitral stenosis/severe tricuspid regurg.
As above.
Cardiology consulted
CT surgery consulted.
Advised to continue medical treatment for now and patient will likely need an surgical mitral valve and tricuspid valve surgery as outpatient after finishing her chemotherapy and radiation.
Chemo-Induced Pancytopenia
Consulted Hematology.
Monitor blood counts closely.
Esophageal dysphagia.
Started 1 to 2 days ago
Consider imaging if persist
Small Cell Lung Cancer
Receives treatment at [facility].
Most recent chemotherapy: Jul 02.
Most recent radiation: Jul 14.
Plan: Continue oncology follow-up.
COPD (No acute exacerbation)
Plan: Continue Anoro Ellipta.
Paroxysmal Atrial Fibrillation (s/p MITZY ligation & MAZE)
Continue Eliquis for anticoagulation.
Continue amiodarone and metoprolol for rate/rhythm control.
Essential Hypertension
Plan: Continue metoprolol with hold parameters.
Hyperlipidemia
Plan: Continue Crestor.
CKD Stage III
Creatinine at baseline.
Plan: Monitor renal function closely while on diuretics.
History of Graves Disease
Plan: Continue levothyroxine.
History of Bioprosthetic Mitral Valve Replacement (2019)
DVT Prophylaxis: Eliquis
Code Status: Full Code
Diet: 2 gram NA diet
Disposition: Continue diuresis
Monitor kidney function
Discharge home tomorrow, will need home ox
Total time spent on today's encounter was 55 minutes which included time spent in counseling the patient/family regarding diagnosis and treatment plan as listed above, goals of care, and symptom management. Case was discussed with nursing staff,
specialists, and care coordinators/case management. All labs and imaging personally reviewed by me. Remainder the time spent in detailed review of previous records, lab data, imaging, and other medical provider documentation.
Anticipated Discharge: Within 24 hours
Subjective/Interval History
-
Date of Service: July 17, 2025
Patient seen and examined at bedside, denies any chest pain , shortness of breath Improved at rest but worse with ambulation.
Patient qualified for home oxygen,
no abdominal pain, no nausea, no vomiting, no diarrhea or constipation.
Objective Data
-
Labs:
Laboratory Results
07/17/25
04:21
WBC 2.4 L*
Hgb 8.3 L
Hct 25.6 L
Plt Count 109 L D
Sodium 134 L
Potassium 3.8
Chloride 94 L
Carbon Dioxide 30
BUN 30 H
Creatinine 1.5 H
Glucose 95
Calcium 8.6
Vital Signs:
Vital Signs
Temp Pulse Resp BP Pulse Ox
97.7 F 68 20 107/57 95
07/17/25 11:08 07/17/25 12:15 07/17/25 11:08 07/17/25 11:06 07/17/25 11:10
I&O
07/16/25 07/17/25 07/18/25
06:59 06:59 06:59
Intake Total 360 / 360 180 / 180
Output Total 400 / 400 675 / 675 100 / 100
Balance -400 / -400 -315 / -315 80 / 80
Physical Exam
-
General: Well Developed, Well Nourished, No Apparent Distress and Comfortable
HEENT: Normocephalic, Atraumatic, Moist Mucous Membranes, No Ptosis, PERRLA and Nose Appears Normal
Respiratory: Rales, Rhonchi and Non Labored Respirations
Cardiac: Regular Rhythm and S1/S2
Breast: Deferred by me
GI: Soft, Nontender, Nondistended and Normal Bowel Sounds
Genito-urinary: No Costovertebral Tender
Musculoskeletal: No Clubbing, No Cyanosis and No Edema
Skin: Warm
Neuro: Awake, Alert, Oriented, AO x 3 and No Motor Deficits
Psych: Calm
[2025-07-17 15:10] VITALS: BP 92/48
--- NOTE | 2025-07-17 17:49 | PTCARENOTE ---
Pt denies discomfort. Attempted to wean oxygen but pt is 86% on room air at rest, case management aware she will likely need home oxygen. Pt continues to diurese slowly with IV lasix. Telemetry shows sinus rhythm.
[2025-07-17 19:03] VITALS: BP 100/47
[2025-07-17 22:28] VITALS: BP 97/53
[2025-07-17] MEDS: TOPROL XL 25 MG PO (22:29)
--- NOTE | 2025-07-17 22:55 | PTCARENOTE ---
Received patient at change of shift. SR on the monitor HR in the 70s. VSS on 2L nasal cannula. No complaints from pt at this time, call garnica within reach.
[2025-07-18 04:06] VITALS: BP 90/44
[2025-07-18 05:58] LABS: Hematocrit 25.2 % (37.0-47.0); Hemoglobin 8.3 g/dL (12.0-16.0); Mean Corp Hgb Conc. 32.9 g/dL (33.0-37.0); Mean Corpuscular Volume 96.6 fL (81.0-99.0); Platelet Count 128 10^3/uL (130-400); Red Cell Dist. Width 16.0 % (11.5-14.5)
[2025-07-18 06:00] VITALS: BMI 22.4
[2025-07-18] MEDS: SYNTHROID 50 MCG PO (06:05)
[2025-07-18 06:16] LABS: Blood Urea Nitrogen 28 mg/dl (7-17); Calcium 8.8 mg/dl (8.4-10.2); Carbon Dioxide 33 mmol/L (22-30); Chloride 93 mmol/L (98-107); Estimated Creatinine Clearance 32 ml/min; Glucose 90 mg/dl (70-99); Potassium 3.7 mmol/L (3.5-5.1); Sodium 133 mmol/L (135-145); eGFR 39.73
[2025-07-18 07:10] VITALS: BP 81/46
[2025-07-18 07:11] VITALS: BP 87/53
[2025-07-18] MEDS: SPIRIVA RESPIMAT 2.5 MCG 2 PUFF INH (07:28)
[2025-07-18] MEDS: STRIVERDI RESPIMAT 2 PUFF INH (07:28)
[2025-07-18] MEDS: ELIQUIS 5 MG PO (08:54)
[2025-07-18] MEDS: CRESTOR 5 MG PO (08:54)
[2025-07-18] MEDS: TOPROL XL PO (08:55)
[2025-07-18] MEDS: PACERONE 200 MG PO (08:55)
--- NOTE | 2025-07-18 08:56 | W.PN.CARDCBS ---
Addendum entered and electronically signed by Uvaldo Terry MD 07/18/25 09:43:
I saw and examined the patient.
The Ict Teacher's note was reviewed and I agree with the note.
Comment:
GEN: No distress, awake, Ox3
HEENT: supple, anicteric, mmm
LUNGS: CTA, no wheezes/rales
CV: Reg, S1/S2, 2/6 syst LSB, no gallop
ABD: soft, BS+, NT/ND
EXT: No edema
NEURO: Gross non-focal
SKIN: No rash
plan:
Overall feels well. Creatinine stable and down to 1.4. Will convert to Lasix 40 mg p.o. twice daily upon discharge.
Agree with plan for home oxygen. Blood pressure remains borderline so we will decrease Toprol to 25 mg p.o. twice daily.
Plan is for her to finish her radiation therapy and chemotherapy next week and then follow-up with Mark to schedule redo mitral valve replacement, tricuspid valve.
High risk for readmission
Original Note:
Today's Communication / Plan
-
plan for po lasix 40mg BID upon DC
eval for home O2
decrease toprol to 25mg BID
BMP/proBNP in 1 week
for possible DC later today if BPs improved
high risk for readmission
follow up with Mark to discuss redo MVR +/- TVR
Impression / Plan
-
Spouting Installer: Dr. Dilip Alas of [facility]
CT surgeon: Dr. Stephen Holley of [facility]
Primary oncologist: Dr. Mallorie Ross of [facility]
Pulm: Yarsanism lung
Impression:
Presented with worsening SOB
Acute on chronic HFpEF
Pancytopenia
Paroxysmal atrial fibrillation
s/p MAZE, MITZY ligation
chronic amiodarone therapy
Chronic OAC with Eliquis
s/p #29 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
Lung Cancer receiving XRT and chemo with carboplatin/etoposide
Graves Disease
COPD
HTN
HLD
DOUGLAS 10/03/2024 @[facility]: EF 65%, well-seated bioprosthetic mitral valve with mild MR, moderate MS, trace AR, moderate to severe TR with moderate to severe pulmonary hypertension
Echo 07/14/2025: EF 60%, abnormal septal motion, dilated RV, status post #29 [facility] bioprosthetic mitral valve replacement with severe MS, peak/mean gradients 52/25 mmHg, severe TR with PAP 78 mmHg
Plan:
- complicated case
- She presents with worsening shortness of breath and acute on chronic CHF in setting of known worsening bioprosthetic MS and severe TR, which unfortunately workup had to be placed on hold due to new finding of lung cancer, of which she is currently
requiring chemotherapy and radiation therapy through [facility]
- she is scheduled to complete her chemo (carboplatin/etoposide) and radiation at the end of next week pending no changes to the schedule
- Echocardiogram 07/14 with preserved EF, but severe MS with peak/mean gradients 52/25 mmHg as well as severe TR with PAP is 78. Reviewed results of echo with patient 07/15
- Weight down 6 pounds from admission if accurate. Creatinine stable at 1.4. Wean supplemental oxygen as able and eval for home O2
- Still with some dyspnea on exertion, however we discussed this may be in part due to her severe valvular disease, not just acute CHF
- Now with relative hypotension, asymptomatic. follow. Would plan for discharge on p.o. Lasix 40 mg twice daily
- BMP/proBNP in 1 week
- appreciate CT surgery input. her MVR was done in [address] [facility] [address] Holley. will need multidisciplinary involvement to determine timing of redo MVR +/-TVR. She reports previously being evaluated for procedure through groin, presumably MitraClip,
however states she was not felt to be a candidate, presumably due to MS.
- She is presently pancytopenic. oncology following. plts improving from admission
- In sinus rhythm on review of telemetry overnight. Continue Amio 200 mg daily, Eliquis.
- toprol dose uptitrated to 50mg QAM ang 25mg QPM in attempt to achieve target HR in 50-60 in setting of severe MS however hypotension is limiting administration. may need to decrease to 25mg BID
- will arrange OP follow up with Drs. Alas/Kishan
- she is high risk for readmission
- for possible DC to home later today if BPs improved
HPI: Natty is a 75 year old female with PMH of chronic HFpEF, paroxysmal atrial fibrillation, MVR, lung cancer, graves disease, COPD, HTN, and HLD. Presented to [facility] ER for evaluation of worsening shortness of breath over the past few days. She
first noticed symptoms over the weekend, and when she was leaving her radiation appt earlier today, became increasingly SOB and requested O2 therapy. Her oxygenation improved reportedly and she came to ER for evaluation. On arrival she was hypoxic
and had evidence of acute heart failure on chest xray and with proBNP 7950. She denies any weight gain noted as OP, but states she is typically between 140 and 145 lbs. Weight in ER noted to be elevated at 148 lbs. She denies any LE edema or chest
pain. Typically follows with cardiology at [facility], Dr. Alas. Has known moderate bioprosthetic mitral valve stenosis. Has been referred to CT surgery, but plan was to focus on management/treatment of lung cancer and follow up for valve intervention
once in remission/improved from oncology viewpoint.
Progress Note - Spouting Installer
Subjective
Date of Service: July 18, 2025
feeling well. no complaints
Objective
Labs:
07/18/25 04:10
07/18/25 04:10
Labs
Hgb 8.3 g/dL (12.0-16.0) L 07/18/25 04:10
Hct 25.2 % (37.0-47.0) L 07/18/25 04:10
Plt Count 128 10^3/uL (130-400) L 07/18/25 04:10
Sodium 133 mmol/L (135-145) L 07/18/25 04:10
Potassium 3.7 mmol/L (3.5-5.1) 07/18/25 04:10
BUN 28 mg/dl (7-17) H 07/18/25 04:10
Creatinine 1.4 mg/dL (0.6-1.0) H 07/18/25 04:10
Glucose 90 mg/dl (70-99) 07/18/25 04:10
Vital Signs and I&O:
Vital Signs
Temp Pulse Resp BP Pulse Ox
98 F 73 18 90/44 92
07/18/25 04:12 07/18/25 07:32 07/18/25 07:32 07/18/25 04:06 07/18/25 07:32
Vital Signs
Temp Pulse Resp BP Pulse Ox
98 F 73 18 90/44 92
07/18/25 04:12 07/18/25 07:32 07/18/25 07:32 07/18/25 04:06 07/18/25 07:32
Intake & Output
07/16/25 07/17/25 07/18/25 07/19/25
07:59 07:59 07:59 07:59
Intake Total 360 / 360 580 / 580
Output Total 400 / 400 675 / 675 600 / 600
Balance -400 / -400 -315 / -315 -20 / -20
Physical Exam
Physical Exam
GEN: No distress, awake, alert, oriented x3.
HEENT: supple, anicteric, mmm, eomi
LUNGS: CTA B/L, no wheezes
CV: Reg, S1/S2, 2/6 murmur
ABD: soft, BS+, NT/ND
EXT: No cyanosis, clubbing, edema
NEURO: Gross non-focal
SKIN: Warm, pink, dry. No rash
--- NOTE | 2025-07-18 10:25 | PTCARENOTE ---
Pt's BP low this am 87/56, Toprol not given and Lasix [address] Mendosa and Dr Terry aware.
[2025-07-18] MEDS: LASIX IV (10:46)
[2025-07-18 11:22] VITALS: BP 101/58
--- NOTE | 2025-07-18 11:30 | PTCARENOTE ---
Addendum entered by Sheri Rodrigez RN 07/18/25 13:00:
O2 Sat at rest on RA 91%
O2 Sat ambulating on RA 84%
Placed on 2l O2 Sat 95%
Original Note:
Pt's O2 sat 91% on RA. Pt ambulated in mcguire on RA, O2 sat 84-87%. Pt placed back on 2L/min, O2 sat 95% on 2L/min.
--- NOTE | 2025-07-18 12:08 | W.PN.HOSP.TC ---
Today's Communication/Plan
-
Discharge home today
Assessment / Plan
Assessment / Plan
Impression:
Patient is a 75 y/o female past medical history of small cell lung cancer currently undergoing chemotherapy and radiation, paroxysmal atrial fibrillation, chronic heart failure, valvular heart disease, chronic kidney disease, and graves disease who
presents with increased shortness of breath. Patient reports increased dyspnea on exertion since this morning. She reports symptoms resolve with rest. She denies chest pain, palpitations, lower extremity edema, changes in weight, cough, or fever.
She reports her Lasix dose was decreased from twice a day to once a day about 2-3 weeks ago.
Patient treated for CHF admitted initially to telemetry floor, echocardiogram done shows severe mitral stenosis and tricuspid regurg with elevated pulmonary pressure, cardiology recommending transfer to IVU, continued on IV Lasix, consulted
cardiology and oncology.
Cardiology recommending to continue iv Lasix.
Patient qualified for home oxygen
Assessment/plan:
Acute hypoxic respiratory failure, multifactorial.
Secondary acute on Chronic HFpEF with underlying lung cancer diagnosis
Patient presented with shortness of breath.
NT-proBNP: 7,950 (previously 479 in Mar 2025).
Troponin level is 0.034
Continue IV diuresing in form of Lasix 40 mg twice daily
Daily weight.
Strict I's and O's.
Consulted cardiology.
Most recent echo shows :
Echo (Sep 2024): Mildly increased LV wall thickness (mild concentric hypertrophy), no segmental wall motion abnormalities, LVEF 65%. Bioprosthetic mitral valve with mild MR and moderate MS.
Repeat echocardiogram 07/14 done shows:
1. Normal left ventricular size and function./ LVEF 60% visually. Abnormal septal motion.
2. Dilated right ventricle with grossly normal right ventricle systolic function.
3. S/p mitral valve replacement #29 [facility] Bioprosthetic. Severe mitral stenosis. Peak/Mean gradients 52/25 mmHg.
4. Severe tricuspid regurgitation with estimated pulmonary artery pressure 78 mmHg assuming right atrial pressure of 3 mmHg.
5. No prior study for comparison.
07/15
Shortness of breath improved but still with exertion.
Continue diuretic
Cardiology increased Toprol.
07/17
Patient qualified for home oxygen
07/18
Patient dropped 86% on room air at rest
Needs home oxygen on discharge.
Patient will be discharged home today
Severe mitral stenosis/severe tricuspid regurg.
As above.
Cardiology consulted
CT surgery consulted.
Advised to continue medical treatment for now and patient will likely need an surgical mitral valve and tricuspid valve surgery as outpatient after finishing her chemotherapy and radiation.
Chemo-Induced Pancytopenia
Consulted Hematology.
Monitor blood counts closely.
Esophageal dysphagia.
Started 1 to 2 days ago
Consider imaging if persist
Small Cell Lung Cancer
Receives treatment at [facility].
Most recent chemotherapy: Jul 02.
Most recent radiation: Jul 14.
Plan: Continue oncology follow-up.
COPD (No acute exacerbation)
Plan: Continue Anoro Ellipta.
Paroxysmal Atrial Fibrillation (s/p MITZY ligation & MAZE)
Continue Eliquis for anticoagulation.
Continue amiodarone and metoprolol for rate/rhythm control.
Essential Hypertension
Plan: Continue metoprolol with hold parameters.
Hyperlipidemia
Plan: Continue Crestor.
CKD Stage III
Creatinine at baseline.
Plan: Monitor renal function closely while on diuretics.
History of Graves Disease
Plan: Continue levothyroxine.
History of Bioprosthetic Mitral Valve Replacement (2019)
DVT Prophylaxis: Eliquis
Code Status: Full Code
Diet: 2 gram NA diet
Disposition: Discharge home today
Total time spent on today's encounter was 55 minutes which included time spent in counseling the patient/family regarding diagnosis and treatment plan as listed above, goals of care, and symptom management. Case was discussed with nursing staff,
specialists, and care coordinators/case management. All labs and imaging personally reviewed by me. Remainder the time spent in detailed review of previous records, lab data, imaging, and other medical provider documentation.
Anticipated Discharge: Today
Subjective/Interval History
-
Date of Service: July 18, 2025
Patient seen and examined at bedside, denies any chest pain , shortness of breath Improved at rest but worse with ambulation.
Patient dropped her oxygen to 86% on room air at rest , qualified for home oxygen,
denies abdominal pain, no nausea, no vomiting, no diarrhea or constipation.
Objective Data
-
Labs:
Laboratory Results
07/18/25
04:10
WBC 4.4 L
Hgb 8.3 L
Hct 25.2 L
Plt Count 128 L
Sodium 133 L
Potassium 3.7
Chloride 93 L
Carbon Dioxide 33 H
BUN 28 H
Creatinine 1.4 H
Glucose 90
Calcium 8.8
Vital Signs:
Vital Signs
Temp Pulse Resp BP Pulse Ox
97.6 F 73 20 87/53 91
07/18/25 11:26 07/18/25 07:32 07/18/25 11:26 07/18/25 08:55 07/18/25 11:26
I&O
07/17/25 07/18/25 07/19/25
06:59 06:59 06:59
Intake Total 360 / 360 580 / 580
Output Total 675 / 675 600 / 600
Balance -315 / -315 -20 / -20
Physical Exam
-
General: Well Developed, Well Nourished, No Apparent Distress and Comfortable
HEENT: Normocephalic, Atraumatic, Moist Mucous Membranes, No Ptosis, PERRLA and Nose Appears Normal
Respiratory: Rales, Rhonchi and Non Labored Respirations
Cardiac: Regular Rhythm and S1/S2
Breast: Deferred by me
GI: Soft, Nontender, Nondistended and Normal Bowel Sounds
Genito-urinary: No Costovertebral Tender
Musculoskeletal: No Clubbing, No Cyanosis and No Edema
Skin: Warm
Neuro: Awake, Alert, Oriented, AO x 3 and No Motor Deficits
Psych: Calm
--- NOTE | 2025-07-18 12:20 | W.DCSUMMARY ---
Discharge Summary
Discharge Data
Date of Admission: 07/14/25
Date of Discharge: 07/18/25
Total time spent discharging patient (in min): 40
-
Pending Results: No
Hospital Course
Hospital course
Patient is a 75 y/o female past medical history of small cell lung cancer currently undergoing chemotherapy and radiation, paroxysmal atrial fibrillation, chronic heart failure, valvular heart disease, chronic kidney disease, and graves disease who
presents with increased shortness of breath. Patient reports increased dyspnea on exertion since this morning. She reports symptoms resolve with rest. She denies chest pain, palpitations, lower extremity edema, changes in weight, cough, or fever.
She reports her Lasix dose was decreased from twice a day to once a day about 2-3 weeks ago.
Patient treated for CHF admitted initially to telemetry floor, echocardiogram done shows severe mitral stenosis and tricuspid regurg with elevated pulmonary pressure, cardiology recommending transfer to IVU, continued on IV Lasix, consulted
cardiology and oncology.
Cardiology recommending to continue iv Lasix.
Patient qualified for home oxygen
During hospitalization patient was treated from the following
Acute hypoxic respiratory failure, multifactorial.
Secondary acute on Chronic HFpEF with underlying lung cancer diagnosis
Patient presented with shortness of breath.
NT-proBNP: 7,950 (previously 479 in Mar 2025).
Troponin level is 0.034
Continue IV diuresing in form of Lasix 40 mg twice daily
Daily weight.
Strict I's and O's.
Consulted cardiology.
Most recent echo shows :
Echo (Sep 2024): Mildly increased LV wall thickness (mild concentric hypertrophy), no segmental wall motion abnormalities, LVEF 65%. Bioprosthetic mitral valve with mild MR and moderate MS.
Repeat echocardiogram 07/14 done shows: 1. Normal left ventricular size and function./ LVEF 60% visually. Abnormal septal motion.
2. Dilated right ventricle with grossly normal right ventricle systolic function.
3. S/p mitral valve replacement #29 [facility] Bioprosthetic. Severe mitral stenosis. Peak/Mean gradients 52/25 mmHg.
4. Severe tricuspid regurgitation with estimated pulmonary artery pressure 78 mmHg assuming right atrial pressure of 3 mmHg.
5. No prior study for comparison.
07/15
Shortness of breath improved but still with exertion.
Continue diuretic
Cardiology increased Toprol.
07/17
Patient qualified for home oxygen
07/18
Patient dropped 86% on room air at rest
Needs home oxygen on discharge.
Patient will be discharged home today
Severe mitral stenosis/severe tricuspid regurg.
As above.
Cardiology consulted
CT surgery consulted.
Advised to continue medical treatment for now and patient will likely need an surgical mitral valve and tricuspid valve surgery as outpatient after finishing her chemotherapy and radiation.
Chemo-Induced Pancytopenia
Consulted Hematology.
Monitor blood counts closely.
Esophageal dysphagia.
Started 1 to 2 days ago
Consider imaging if persist
Small Cell Lung Cancer
Receives treatment at [place].
Most recent chemotherapy: Jul 02.
Most recent radiation: Jul 14.
Plan: Continue oncology follow-up.
COPD (No acute exacerbation)
Plan: Continue Anoro Ellipta.
Paroxysmal Atrial Fibrillation (s/p MITZY ligation & MAZE)
Continue Eliquis for anticoagulation.
Continue amiodarone and metoprolol for rate/rhythm control.
Essential Hypertension
Plan: Continue metoprolol with hold parameters.
Hyperlipidemia
Plan: Continue Crestor.
CKD Stage III
Creatinine at baseline.
Plan: Monitor renal function closely while on diuretics.
History of Graves Disease
Plan: Continue levothyroxine.
History of Bioprosthetic Mitral Valve Replacement (2019)
DVT Prophylaxis: Eliquis
Code Status: Full Code
Diet: 2 gram NA diet
Disposition: Discharge home today
Total time spent on today's encounter was 40 minutes which included time spent in counseling the patient/family regarding diagnosis and treatment plan as listed above, goals of care, and symptom management. Case was discussed with nursing staff,
specialists, and care coordinators/case management. All labs and imaging personally reviewed by me. Remainder the time spent in detailed review of previous records, lab data, imaging, and other medical provider documentation.
Anticipated Discharge: Today
Discharge Plan
-
Patient Disposition: Home with Home Care
Discharge Diagnosis/Procedures: Acute hypoxic respiratory failure, multifactorial.
Secondary acute on Chronic HFpEF with underlying lung cancer diagnosis
Severe mitral stenosis/severe tricuspid regurg.
Chemo-Induced Pancytopenia
Diet: Low Sodium
Activity: As tolerated
Other Services: PT and OT
Instructions: *PCP/Other Parts Counter Specialist Heart Failure Instructions
Referrals:
Komal Brizuela MD [Active, Hematology / Oncology] - in two to four weeks
Gavi Sidhu CRNP [Family Provider, General]
Josephine Moore DO [Active, Cardiology] - in two to three weeks
Harish Kaba MD [Active, Cardiac Surgery] - in four to six weeks
Prescriptions:
Continued
amiodarone 200 mg Tablet
200 mg PO DAILY
olanzapine 5 mg Tablet
5 mg PO HS
therapeutic multivitamin Tablet
1 tab PO DAILY
calcium carbonate 500 mg calcium (1,250 mg) Tablet
500 mg PO DAILY
levothyroxine [Synthroid] 50 mcg Tablet
50 mcg PO DAILY
cyclobenzaprine 5 mg Tablet
5 mg PO TIDPRN PRN (Reason: spasms)
rosuvastatin [Crestor] 5 mg Tablet
5 mg PO DAILY
Eliquis 5 mg Tablet
5 mg PO BID
umeclidinium-vilanterol [Anoro Ellipta] 62.5-25 mcg/actuation Blister With Device
1 inh INHALATION R DAILY
Changed
furosemide [Lasix] 40 mg Tablet
40 mg PO BID 30 Days Qty: 60 0RF
metoprolol succinate [Toprol XL] 25 mg Tablet Extended Release 24 Hr
25 mg PO BID 30 Days Qty: 60 0RF
Discharge Orders:
Discharge Patient (As Directed); Ordered 07/18/25
Ordered By: Navya Farrell
Care Plan Goals
Care Plan Goals:
Problem: Readiness for enhanced knowledge related to diagnosis and treatment plan
Goal: Understand your diagnosis and treatment plan needs, including medications if applicable.
Instructions: Know your diagnosis, underlying causes and treatment plan options, including medications if applicable. Consult with your health care team to learn about your diagnosis and treatment plan, including medications if applicable.
Discharge Date and Time
Print Language: MAORI
--- NOTE | 2025-07-18 13:39 | CM ---
Chart reviewed. Patient is independent of ADLS, lives alone in a 1 STH, 2 BETTY, 0 DME. Patient receiving chemotherapy and radiation therapy at [facility]. Patient requiring Home O2. Referral sent to [facility]. Offered VN to the
patient, but she declined. Patient will be staying with her niece at [address] [place] [id number]. Plan is for the patient to go to her nieces house with Home O2.
--- NOTE | 2025-07-18 15:05 | PTCARENOTE ---
Pt's subq port de-accessed by VAT team, prior to discharge. Small dsg to site remains D+I. Pt's discharge instructions reviewed with her , she expressed understanding.
== END 2025-07-18 15:45 | disposition home or self-care (01) | DRG 291 ==
LOC: IVU 14:20
PROVIDERS: Physician Assistant; Physician Assistant Medical; ADMITTING PHYSICIAN Internal Medicine; ATTENDING PHYSICIAN General Practice; CONSULT PHYSICIAN Internal Medicine Cardiovascular Disease; CONSULT PHYSICIAN Thoracic Surgery (Cardiothoracic Vascular Surgery); EMERGENCY PHYSICIAN Student in an Organized Health Care Education/Training Program; FAMILY PHYSICIAN Nurse Practitioner; OTHER PHYSICIAN Internal Medicine Hematology & Oncology
DX: I13.0 Hypertensive heart and chronic kidney disease with heart failure and stage 1 through stage 4 chronic kidney disease, or unspecified chronic kidney disease (principal); D61.810 Antineoplastic chemotherapy induced pancytopenia; I50.33 Acute on chronic diastolic (congestive) heart failure; J96.01 Acute respiratory failure with hypoxia; T82.857A Stenosis of other cardiac prosthetic devices, implants and grafts, initial encounter; D84.9 Immunodeficiency, unspecified; C34.32 Malignant neoplasm of lower lobe, left bronchus or lung; Y83.1 Surgical operation with implant of artificial internal device as the cause of abnormal reaction of the patient, or of later complication, without mention of misadventure at the time of the procedure; D69.59 Other secondary thrombocytopenia; E03.9 Hypothyroidism, unspecified; E78.5 Hyperlipidemia, unspecified; I05.0 Rheumatic mitral stenosis; I07.1 Rheumatic tricuspid insufficiency; I27.20 Pulmonary hypertension, unspecified; I48.0 Paroxysmal atrial fibrillation; J44.9 Chronic obstructive pulmonary disease, unspecified; N18.30 Chronic kidney disease, stage 3 unspecified; R54 Age-related physical debility; T45.1X5A Adverse effect of antineoplastic and immunosuppressive drugs, initial encounter; Z11.52 Encounter for screening for COVID-19; Z87.891 Personal history of nicotine dependence; Z79.899 Other long term (current) drug therapy; Z79.01 Long term (current) use of anticoagulants
CPT/HCPCS: 71046; 80048; 80053; 80061; 83735; 83880; 84439; 84443; 84484; 85025; 85027; 87502; 87811; 93005; 93306; 94640; 99285

== ENCOUNTER 2025-07-28 13:59 | Inpatient (IN) | payer MEDICARE, OTHER, SELFPAY ==
[2025-07-28] VITALS (9 sets, daily range): BP systolic 84–102; BP diastolic 42–55; BMI 24.3
--- NOTE | 2025-07-28 11:10 | ED.GENMED ---
History of Present Illness
General
Chief Complaint: Breathing Problem
Source: patient and family (Daughter)
Exam Limitations: none
Time Seen by Provider: 07/28/25 10:43
History of Present Illness
History of Present Illness:
75-year-old female complaining of progressive shortness of breath with exertion. Known history of lung CA. Also history of a bad mitral valve. Had a thoracentesis done few weeks ago without improvement. No pleuritic pain no fever. No cough.
Shortness of breath is to the point of even short walks to the bathroom make her dyspneic
Past History
Past History
ED Past Medical History: Cancer (Lungs CA), CHF and Valvular disease
Review of Systems
Review of Systems
All Other Systems: Not applicable
Constitutional: Denies fever
Cardiac: Denies chest pain or syncope
ABD/GI: Denies abdominal pain
Phy Exam
Physical Exam
Physical Exam:
GENERAL: Alert and oriented in no apparent distress. Generally weak appearing
EYE: Orbits normal.
NECK: Supple, no significant adenopathy.
ENT: Pharynx without erythema
CARDIAC: Regular rate and rhythm without any obvious murmurs.
LUNGS: Mild tachypnea at rest. Crackles in the left base with decreased breath sounds in the base. Mild crackles in the right base. Port upper chest wall
ABDOMEN: Soft, without focal tenderness or distention
NEUROLOGICAL: Alert and oriented , grossly non-focal
SKIN: Warm and dry, no rash or lesion, no discoloration, skin intact.
MUSCULOSKELETAL: No edema,no deformity.Good color
PSYCH: Normal and appropriate interaction.
Scores
Heart Failure Risk
Heart Failure Risk Score: Yes
History of Stroke or TIA: No
History of intubation for respiratory distress: No
Heart rate on ED arrival >/= 110: No
SaO2 <90% on arrival on room air: Yes
HR >/=110 during 3min walk test (or too ill to perform test): Yes
ECG has acute ischemic changes: No
Urea >/=12mmol/L (BUN 33.6mg/dL): Yes
Serum CO2>/=35mmol/L: No
Troponin I or T elevated to UT Level (0.4mg/dL): No
NT-proBNP >/=5,000ng/L (5,000pg/ml): Yes
HF Risk Score: 5
Admission Status: VERY HIGH RISK 39.8% Consider admission to hospital
Course
Orders/Labs/Results
Orders:
Orders
07/28/25 10:55
IV Insert/Care/Rem.- Treatment PRN
Pulse Ox/cont/shift [RESP] Stat
Quantity: 1
07/28/25 10:56
Electrocardiogram (*1) Stat
Reason for Study: Other
Other Reason for Exam: chest pain
Cardiac Monitoring- Treatment ONCE
EKG- Treatment ONCE
CR Chest - 2 Views Urgent
Comment:
Reason For Exam: sob
07/28/25 11:53
Furosemide [Lasix] 40 mg IV NOW STA
07/28/25 12:05
Complete Blood Count/With Diff Urgent
07/28/25 12:06
Basic Metabolic Panel Urgent
NT-proBNP Urgent
Troponin I Urgent
07/28/25 13:45
Admit/Transfer Patient As Directed
Co-Sign Provider:
Level of Care: Inpatient admission
Assign to:: Telemetry
Physician / Group: Stephane Dutta
Diagnosis: lung cancer, severe mitral stenosis, HFpEF
Reason for Telemetry: Arrhythmia
Date to Stop Telemetry: 07/31/25
Time to Stop Telemetry: 11:00
Reason for Hospitalization: lung cancer, severe mitral stenosis, HFpEF
Expected length of stay greater than two midnights?: Yes
ELOS- Estimated Length of Stay in days: 3
I certify the patient meets the requirements for IP care: Yes
PRN Pain Medication Management As Directed
May give lesser potent ordered pain med per pt: Yes
preference::
Protocol:: Medication orders for pain may be administered in a
manner that supports deferring to patient preference
when the pt is:
- Requesting an ordered lesser potent pain medication.
Least to most potent pain medications are defined
as: acetaminophen < NSAID < tramadol < opioids
(morphine, oxycodone, hydromorphone).
- Requesting a lesser dose of the same medication IF
ORDERED.
- Requesting a less intrusive route of administration
if both routes are prescribed by the provider (PO <
IV).
07/28/25 13:48
Code Status As Directed
Resuscitation Status: Full Code
07/31/25 11:00
DC Protocol for Telemetry ONCE
Abnormal Lab Results
07/28/25 07/28/25
12:05 12:06
WBC 12.0 H 10^3/uL
(4.8-10.8)
RBC 2.52 L 10^6/uL
(4.20-5.40)
Hgb 8.0 L g/dL
(12.0-16.0)
Hct 24.7 L %
(37.0-47.0)
MCH 31.7 H pg
(27.0-31.0)
MCHC 32.4 L g/dL
(33.0-37.0)
RDW 19.6 H %
(11.5-14.5)
Plt Count 492 H 10^3/uL
(130-400)
MPV 11.0 H fL
(7.4-10.4)
Abs Immat Gran (auto) 0.1 H 10^3/uL
(0-0.05)
Absolute Neuts (auto) 10.7 H 10^3/uL
(1.4-6.5)
Absolute Lymphs (auto) 0.6 L 10^3/uL
(1.2-3.4)
Absolute Monos (auto) 0.7 H 10^3/uL
(0.1-0.6)
Neutrophils % 88.8 H %
(42.2-75.2)
Lymphocytes % 4.9 L %
(20.5-51.1)
Sodium 127 L mmol/L
(135-145)
Chloride 89 L mmol/L
(98-107)
BUN 54 H mg/dl
(7-17)
Creatinine 1.9 H mg/dL
(0.6-1.0)
Glucose 104 H mg/dl
(70-99)
07/28/25 12:05
07/28/25 12:06
Vital Signs
Initial and Last Documented VS:
Initial Vital Signs
Pulse Resp BP Pulse Ox
77 20 92/48 96
07/28/25 10:26 07/28/25 10:26 07/28/25 10:26 07/28/25 10:26
Last Documented Vital Signs
Pulse Resp BP Pulse Ox
67 23 97/54 98
07/28/25 14:00 07/28/25 13:15 07/28/25 14:00 07/28/25 13:15
*Pulse Oximetry
SaO2: 96
Nasal Cannula flow liters per minute: 3
Patient hypoxic: yes
*EKG
Interpreted by ED Provider?: Yes
Interpretation: abnormal
Comparison EKG: changes noted
Heart Rate: 68
Rate: normal
Rhythm: sinus
[place]: normal axis
Interval: long QT
Ischemia: other (Biphasic T waves lead V2 V3. Nonspecific EKG changes)
*Member Services Coordinator Interpretation
Rate: normal
Interpretation: normal
Heart Rate: 70
Rhythm: sinus
*Critical Care Note
Total Time (30-74mins, 75-104mins- exclusive of procedures): Not Applicable
Update Note
Update Note:
Dr. David Jeffery is very interested in staying abreast of her care. [phone]
ED Attending Note
-
Portions of this chart may have been created with voice recognition software.� Occasional wrong word or��sound alike� substitutions may have occurred due to the inherent limitations of voice recognition software.
Discharge Plan
Departure
Patient Disposition: Admit
Date of Disposition: 07/28/25
Time of Disposition: 13:27
Presentation/result/management discussed w/ accepting MD/DO: Hospitalist
Discharge Problem:
CHF, C renal insufficiency, Lungs CA
Interventions
Interventions:
*General Assessment Last Done: 07/28/25 10:35
*Neglect/Abuse Screening Last Done: 07/28/25 10:35
*ED COVID-19 Vaccine History Last Done: 07/28/25 10:58
*ED Influenza Vaccine History Last Done: 07/28/25 10:58
[facility] Fall Risk Assessment Tool Last Done: 07/28/25 11:00
*Risk Screen - Suicide (C-SSRS) Last Done: 07/28/25 10:35
ED- Cardiac Assessment Last Done: 07/28/25 11:22
ED- Pulmonary Assessment Last Done: 07/28/25 11:22
--- NOTE | 2025-07-28 12:00 | VATNOTE ---
Prior to port access, pt educated regarding the risks of CLABSI in the hospitalized patient with an accessed port. Pt aware of risks and states she still wants to have her port accessed at this time. Port accessed using sterile technique.
[2025-07-28] MEDS: LASIX 40 MG IV (12:15)
[2025-07-28 12:41] LABS: Hematocrit 24.7 % (37.0-47.0); Hemoglobin 8.0 g/dL (12.0-16.0); Mean Corp Hgb Conc. 32.4 g/dL (33.0-37.0); Mean Corpuscular Volume 98.0 fL (81.0-99.0); Nucleated Red Blood Cells % 0.5 %; Platelet Count 492 10^3/uL (130-400); Red Cell Dist. Width 19.6 % (11.5-14.5)
[2025-07-28 12:47] LABS: Blood Urea Nitrogen 54 mg/dl (7-17); Calcium 8.6 mg/dl (8.4-10.2); Carbon Dioxide 29 mmol/L (22-30); Chloride 89 mmol/L (98-107); Estimated Creatinine Clearance 22 ml/min; Glucose 104 mg/dl (70-99); Potassium 3.7 mmol/L (3.5-5.1); Sodium 127 mmol/L (135-145); eGFR 27.54
[2025-07-28 12:55] LABS: Troponin I 0.019 ng/ml
--- NOTE | 2025-07-28 13:10 | HPS.HSE ---
Family Physician
-
Family Physician: DESI Samuel
Chief Complaint
-
shortness of breath
History of Present Illness
Patient is a 75-year-old female with past medical history significant for small cell lung cancer, COPD, pulmonary hypertension, chronic HFpEF, valvular heart disease, paroxysmal atrial fibrillation s/p MITZY ligation and MAZE, procedure, essential
hypertension, hyperlipidemia, chronic kidney disease stage III and Graves disease who presented to [facility] ED for evaluation of shortness of breath. Patient with recent hospitalization for acute hypoxic respiratory failure 2/2 chronic HFpEF and
underlying lung cancer from 07/14/2025 - 07/17/2025. She was found to have severe mitral stenosis and severe tricuspid regurg. Will likely need valve replacement following completion of cancer treatments. Patient reports that since hospital
discharge her shortness of breath has gotten increasingly worse to having a difficult time just getting to the bathroom. She spoke with physician at [facility] in [place] while there today for radiation and they agreed evaluation in ED was
warranted. During assessment patient is short of breath with conversation. Denies any fever, chills, cough, chest pain, nausea or vomiting.
Medical History
Past Medical History
Past Medical History: Reports Other
Additional Past Medical History:
small cell lung cancer
COPD
pulmonary hypertension
chronic HFpEF
valvular heart disease
paroxysmal atrial fibrillation s/p MITZY ligation and MAZE procedure
essential hypertension
hyperlipidemia
chronic kidney disease stage III
Graves disease
Past Surgical History: Reports Other
Additional Past Surgical History:
Bioprosthetic Mitral Valve Replacement - 2019
Social History
Tobacco: Former Smoker (Quit in 2019)
Alcohol: Other (Rare)
Drug: None
Living: With Family
Family History
Family History: Not pertinent
Allergies / Home Medications
Allergies reflects when Allergies were last updated in [facility].
Home Medications with original date entered in [facility]
Allergy/Medication List:
Allergies
Allergy/AdvReac Type Severity Reaction Status Date / Time
No Known Allergies Allergy Unverified 07/28/25 10:33
Home Medications
amiodarone 200 mg tablet 200 mg PO DAILY Arrhythmia 07/14/25
apixaban 5 mg tablet (Eliquis) 5 mg PO BID Blood Clot Prevention/Tx 07/14/25
calcium carbonate 500 mg PO DAILY Supplement 07/14/25
cyclobenzaprine 5 mg tablet 5 mg PO TIDPRN PRN spasms 07/14/25
levothyroxine 50 mcg tablet (Synthroid) 50 mcg PO DAILY Thyroid 07/14/25
olanzapine 5 mg tablet 5 mg PO HS Mental Health/Anxiety 07/14/25
rosuvastatin 5 mg tablet (Crestor) 5 mg PO DAILY cholesterol 07/14/25
therapeutic multivitamin 1 tab PO DAILY Supplement 07/14/25
umeclidinium 62.5 mcg-vilanterol 25 mcg/actuation powdr for inhalation (Anoro Ellipta) 1 inh inhalation R DAILY Lung/Breathing Issues 07/14/25
furosemide 40 mg tablet (Lasix) 40 mg PO BID Fluid Retention/Swelling 30 days #60 tabs 07/18/25
metoprolol succinate 25 mg tablet,extended release 24 hr (Toprol XL) 25 mg PO BID Heart Disease/BP 30 days #60 tabs 07/18/25
Review of Systems
-
History Source: Patient
Constitutional: Reports Fatigue; Denies Fever or Chills
EENT: Denies Sore Throat
Respiratory: Reports Trouble Breathing (significant exertional dyspnea ); Denies Cough or Hemoptysis
Cardiac: Denies Chest Pain, Diaphoresis, Palpitations or Syncope
Abdomen/GI: Denies Abdominal Pain, Nausea, Vomiting or Diarrhea
: Denies Dysuria, Frequency or Urgency
Musculoskeletal: Denies Joint Pain
Skin: Denies Rash
Neurological: Reports Weakness; Denies Dizzy, Headache or Numbness
Physical Exam
Vital Signs
Vital Signs
Pulse Resp BP Pulse Ox
67 20 100/53 94
07/28/25 13:00 07/28/25 13:00 07/28/25 12:15 07/28/25 11:15
Physical Exam
General: Well Developed, Conversant and Appears Chronically Ill
HEENT: NormoCephalic, PERRLA, Nose Appears Normal and Ears Appear Normal; No Moist mucous membranes
Respiratory: Clear, Decreased Breath Sounds and Other (tachypneic with conversation); No Wheezes, Rales or Rhonchi
Cardiac: Regular Rhythm and Other (LCW port ); No Murmur, Rub or Gallop
GI: Soft, Non Tender, Non Distended and Normal Bowel Sounds
Musculoskeletal: No Clubbing and No Cyanosis
Skin: Warm and IV/Catheter Site
Neuro: Awake and AO x 3
Psych: Calm
Laboratory Results
-
07/28/25 12:05
07/28/25 12:06
Laboratory Results
Troponin I 0.019 ng/ml 07/28/25 12:06
Data Reviewed
-
Diagnostic Radiology: Report Reviewed by me (CXR; Increased pulmonary vascularity suggesting pulmonary edema. Some bibasilar opacification most likely representing subsegmental atelectasis and tiny bilateral pleural effusions. Pneumonia cannot be
excluded. Left chest port with tip at level of the cardiac right atrium.)
Medical Tests (Nuc Med, Echo, EKG etc): Report Reviewed by me (EKG: NORMAL SINUS RHYTHM ST and T WAVE ABNORMALITY, CONSIDER ANTERIOR ISCHEMIA QTcB >= 480 msec)
Lab Data: Labs Reviewed by me (WBC 12.0, hgb 8.0, hct 24.7, neut 88.8, Na+ 127, Chloride 89, BUN 54, creat 1.9, Est CrCl 22, eGFR 27.54, pBNP 78186)
Impression/Plan
-
IMPRESSION/PLAN:
#significant exertional dyspnea and hypoxic respiratory insufficiency 2/2 HFpEF vs. severe mitral stenosis vs. infectious process vs. lung cancer
worsening exertional dyspnea, new home O2,
WBC 12.0, hgb 8.0, hct 24.7, neut 88.8
EKG: NORMAL SINUS RHYTHM
ST and T WAVE ABNORMALITY, CONSIDER ANTERIOR ISCHEMIA
QTcB >= 480 msec
CXR: Increased pulmonary vascularity suggesting pulmonary edema.
Some bibasilar opacification most likely representing subsegmental atelectasis and tiny bilateral pleural effusions. Pneumonia cannot be excluded.
Left chest port with tip at level of the cardiac right atrium.
- Admit to telemetry
- Consult Cardiology
- IV Lasix 40mg given in ED
- continue with PO Lasix
- supportive care
#chronic HFpEF
pBNP [id number]
- daily weights
- I & Os
- continue furosemide
#small cell lung cancer
follows with [facility], currently receiving radiation therapy
- continue to follow out patient as scheduled
#COPD
- continue Anoro Ellipta
#paroxysmal atrial fibrillation
s/p MITZY ligation and MAZE procedure
- continue Eliquis
- continue amiodarone and metoprolol
#essential hypertension
- continue metoprolol
#hyperlipidemia
- continue rosuvastatin
#chronic kidney disease stage III
BUN 54, creat 1.9, Est CrCl 22, eGFR 27.54
appears at baseline
- monitor BMP
#Graves disease
- continue levothyroxine
#pulmonary hypertension
#valvular heart disease
Code status: full code
DVT prophylaxis: Eliquis
--- NOTE | 2025-07-28 13:27 | W.PN.UPDATE ---
Update Note
Progress Note Update
This note serves as an addendum to the H&P by vice president of marketing Sami Magaña
HPI
75F HX Ca Lung on going XRT , HX MVR seen at ER ;
- progressive shortness of breath with minimal exertion
- Had a thoracentesis done few weeks ago without improvement.
- No pleuritic pain no fever. No cough. Shortness of breath is to the point of even short walks to the bathroom make her dyspneic
Nut Grinder: Dr. Dilip Alas of [facility]
CT surgeon: Dr. Stephen Holley of [place]
Primary oncologist: Dr. Mallorie Ross of [facility]
Pulm: [facility]
VS
Pulse Resp BP Pulse Ox
67 20 100/53 94
07/28/25 13:00 07/28/25 13:00 07/28/25 12:15 07/28/25 11:15
PE
Gen: mild tachypnea at rest.
HEENT: anicteric
Neck: supple
Lungs Crackles in the lboth bases with decreased breath sounds in the base.
Cor: RRR S1 S2
Abdomen: soft NT NG
IN FLIGHT REFUELING CRAFTSMAN: AAO3
MS:no edema
Psych:Nl mood and affect
Port @ upper chest wall
Relevant Data
07/18/25 07/28/25 07/28/25
04:10 12:05 12:06
WBC 4.4 L 12.0 H
Hgb 8.3 L 8.0 L
Plt Count 128 L 492 H
Sodium 127 L
Chloride 89 L
BUN 28 H 54 H
Creatinine 1.4 H 1.9 H
eGFR 39.73 27.54
07/14/25 07/28/25
11:40 12:06
[id number] Pept [id number]
EKG
NORMAL SINUS RHYTHM
ST and T WAVE ABNORMALITY, CONSIDER ANTERIOR ISCHEMIA
QTcB >= 480 msec
ABNORMAL ECG
WHEN COMPARED WITH ECG OF 14-Jul-2025 11:13,
T WAVE INVERSION NOW EVIDENT IN ANTERIOR LEADS
QT HAS LENGTHENED
ECHO July 2025
EF 60%, abnormal septal motion
dilated RV,
status post #29 [facility] bioprosthetic mitral valve replacement
severe MS, peak/mean gradients 52/25 mmHg, severe TR with PAP 78 mmHg
01/31/25 PET scan
- Markedly FDG avid solitary left lower lobe pulmonary nodule (which further increases upon delayed imaging), highly suspicious for primary lung cancer.
- No additional suspicious FDG avid lesions in the body.
Last hospitalist admission: 07/14/25 - 07/18/25
ASSESSMENT & PLAN
Acute on c Chr HFpEF in setting of known worsening bioprosthetic MS and severe TR
Associated progressive [place] with associated acute hypoxic RI due to acute HF
Significant interval elevated doubled up proBNP
- Tenuous control of Volume due to severe worsening bioprosthetic MS and severe TR
- IV Lasix 40 x `1 at ER - c/w INSTRUMENT AND ELECTRICAL TECHNICIAN PO lasix
- c/w INSTRUMENT AND ELECTRICAL TECHNICIAN Metoprolol XL 25 daily
- Supplemental O2 - goal POX > 94%
- Daily IOs, wt
- Daily BMP
- DCA Card consult - defer Diuresis to Card
FERNANDO - Cardiorenal syndrome vs. overdiuresis
CKD 3b with baseline Cr 1.2 - 1.3
- Trend Cr with IV diuresis
In NSR
HX Prx AF
- c/w INSTRUMENT AND ELECTRICAL TECHNICIAN Eliquis
- c/w INSTRUMENT AND ELECTRICAL TECHNICIAN Amiodarone
HLD
- c/w Rosuvastatin
DVT Px: INSTRUMENT AND ELECTRICAL TECHNICIAN Eliquis
Full Code
IP TLM
--- NOTE | 2025-07-28 14:40 | CON.CAR ---
Addendum entered and electronically signed by Alexsander Campos MD 07/28/25 16:07:
I saw and examined the patient.
The SOLID GLASS ROD DOWEL MACHINE OPERATOR or PA's note was reviewed and I agree with the note.
Comment: General: Well developed, well nourished in NAD.
Neck: Supple, no JVD, HJR, carotids +2 B/L, no bruits bilaterally.
Heart: Non displaced PMI, RRR, no murmurs, No S3, S4, no rubs.
Lungs: Scattered rhonchi
Extremities: No clubbing, cyanosis or edema bilaterally.
Neuro: Grossly nonfocal, awake, alert and oriented x3.
Natty has a history of PAF on chronic amiodarone and Eliquis, [facility] bioprosthetic mitral valve replacement in October 2018 with severe bioprosthetic dysfunction with severe mitral stenosis and severe TR, lung cancer receiving radiation and
chemotherapy, Graves' disease, COPD, hypertension. She was admitted in July 2025 with acute diastolic CHF. She was diuresed and discharged on Lasix 40 mg p.o. twice daily. She also had thoracentesis on July 25 with 500 mL removed.
She continues to feel short of breath unable to walk short distances without symptoms. She was getting treatment earlier today and told to come to the ER for treatment. She is admitted for acute diastolic CHF. Creatinine is increased to 1.9.
Will continue IV Lasix and follow renal function closely. She is scheduled to have redo mitral valve surgery at [facility] with Dr. Holley but reportedly was supposed to finish chemotherapy and radiation. This plan may need to be reassessed. Of note she
is on 2 to 3 L of oxygen at home and is currently on 2 L.
Original Note:
Medical History
-
History of Present Illness:
HPI: Natty is a 75 year old female with PMH of chronic HFpEF, paroxysmal atrial fibrillation, MVR now with severe MS and severe TR, lung cancer on chemo and XRT, graves disease, COPD, HTN, and HLD. Presented to [facility] ER for evaluation of worsening
shortness of breath after recent admission. She was recently admitted at [facility] 07/14 to 07/18/2025 with acute HFpEF. She was diuresed and sent out on higher dose lasix 40mg BID. She reports she had thoracentesis on Wednesday 07/25 with 500 cc removed,
but since then has continued to feel significantly SOB and is unable to walk even short distances without symptoms. No chest pain. She was at treatment earlier today and was told due to her worsening symptoms, that she needed to come to ER for valve
surgery. [place] [address] with chest xray with worsening pulmonary edema. Creat has also bumped to 1.9. Weight overall stable. Cardiology consulted for evaluation given acute heart failure.
PMH:
Chronic HFpEF
Paroxysmal atrial fibrillation
s/p MAZE, MITZY ligation
chronic amiodarone therapy
Chronic OAC with Eliquis
s/p #29 [facility] bioprosthetic MVR 10/26/2018, now w/ severe MS and severe TR
Lung Cancer receiving XRT and chemo with carboplatin/etoposide
Graves Disease
COPD
HTN
HLD
Past Medical History
Past Medical History: Other (In HPI)
Past Surgical History: Cardiac (MVR 2018)
Social History
Tobacco: Former Smoker
Alcohol: Occasional
Drug: None
Personal: Single
Family History
Family History: Reviewed & Not Pertinent
Allergies / Home Medications
Allergy/AdvReac Type Severity Reaction Status Date / Time
No Known Allergies Allergy Unverified 07/28/25 10:33
�Medication �Instructions �Recorded �Confirmed �Type
amiodarone 200 mg tablet 200 mg PO DAILY Arrhythmia 07/14/25 07/28/25 History
apixaban 5 mg tablet (Eliquis) 5 mg PO BID Blood Clot 07/14/25 07/28/25 History
Prevention/Tx
calcium carbonate 500 mg PO DAILY Supplement 07/14/25 07/28/25 History
cyclobenzaprine 5 mg tablet 5 mg PO TIDPRN PRN spasms 07/14/25 07/28/25 History
levothyroxine 50 mcg tablet 50 mcg PO DAILY Thyroid 07/14/25 07/28/25 History
(Synthroid)
olanzapine 5 mg tablet 5 mg PO HS Mental Health/Anxiety 07/14/25 07/28/25 History
rosuvastatin 5 mg tablet (Crestor) 5 mg PO DAILY cholesterol 07/14/25 07/28/25 History
therapeutic multivitamin 1 tab PO DAILY Supplement 07/14/25 07/28/25 History
umeclidinium 62.5 mcg-vilanterol 1 inh inhalation R DAILY 07/14/25 07/28/25 History
25 mcg/actuation powdr for Lung/Breathing Issues
inhalation (Anoro Ellipta)
furosemide 40 mg tablet (Lasix) 40 mg PO BID Fluid 07/18/25 07/28/25 Rx
Retention/Swelling 30 days #60 tabs
metoprolol succinate 25 mg 25 mg PO BID Heart Disease/BP 30 07/18/25 07/28/25 Rx
tablet,extended release 24 hr days #60 tabs
(Toprol XL)
Review of Systems
-
History Source: Patient
All other systems: Negative unless noted
Physical Exam
Vital Signs
Pulse Resp BP Pulse Ox
67 23 97/54 98
07/28/25 14:00 07/28/25 13:15 07/28/25 14:00 07/28/25 13:15
Lab Results
07/28/25 12:05
07/28/25 12:06
Troponin I 0.019 ng/ml 07/28/25 12:06
Eud-H-Kvrclnsobnn Pept 47950 pg/ml 07/28/25 12:06
Physical Exam
General: Well Developed, Well Nourished and No Apparent Distress
HEENT: Normocephalic, Anicteric and Moist Mucous Membranes
Respiratory: Crackles and Non Labored Respirations
Cardiac: S1/S2, Regular Rhythm and Murmur
Musculoskeletal: No Clubbing, No Cyanosis and No Edema
Skin: Warm and Dry
Neuro: AO x 3 and Nonfocal/Grossly Intact
Psych: Calm
Impression / Plan
-
Quality Officer: Dr. Dilip Alas of [facility]
CT surgeon: Dr. Stephen Holley of [facility]
Primary oncologist: Dr. Mallorie Ross of [facility]
Pulm: [facility] lung
Impression:
Presented with worsening LAGOS
FERNANDO
Hyponatremia
Acute on chronic HFpEF
Paroxysmal atrial fibrillation
s/p MAZE, MITZY ligation
chronic amiodarone therapy
Chronic OAC with Eliquis
s/p #29 [facility] bioprosthetic MVR 10/26/2018, now w/ severe MS and severe TR
Lung Cancer receiving XRT and chemo with carboplatin/etoposide
Graves Disease
COPD
HTN
HLD
DUOGLAS 10/03/2024 @[facility]: EF 65%, well-seated bioprosthetic mitral valve with mild MR, moderate MS, trace AR, moderate to severe TR with moderate to severe pulmonary hypertension
Echo 07/14/2025: EF 60%, abnormal septal motion, dilated RV, status post #29 [facility] bioprosthetic mitral valve replacement with severe MS, peak/mean gradients 52/25 mmHg, severe TR with PAP 78 mmHg
Plan:
-Presented with worsening LAGOS. Admitted with [place] [address] with worsening pulmonary edema on chest xray.
-Agree with IV Lasix 40 mg x 1 in ER. Continue IV Lasix 40 mg daily, and uptitrate as needed if renal function allows.
-Creatinine up to 1.9 on 07/28. Continue to follow closely with diuresis. Hopefully renal function improves with diuresis.
-Weight overall stable at 136 pounds. Continue to follow.
-During recent admission echo showed preserved EF with severe MS with severe TR. CT surgery saw during prior admission and recommended she follow-up with her surgery team at [facility] after recovered from admission, and ideally after completing
chemotherapy.
-There has been communication through her primary halftone operator and primary CT surgeon regarding doing valve surgery on a more urgent basis based on worsening symptoms and recurrent heart failure admissions.
-Consider reevaluation by CT surgery here versus consideration for evaluation by CT surgery at [facility] pending clinical status w/ diuresis.
-Hyponatremia noted on labs in ER with Na of 127. Follow with diuresis.
-Remains in SR by ECG. Continue amiodarone 200 mg daily.
-Continue Eliquis 5 mg twice daily for anticoagulation.
-BP stable. Continue Toprol.
HPI: Natty is a 75 year old female with PMH of chronic HFpEF, paroxysmal atrial fibrillation, MVR now with severe MS and severe TR, lung cancer on chemo and XRT, graves disease, COPD, HTN, and HLD. Presented to [facility] ER for evaluation of worsening
shortness of breath after recent admission. She was recently admitted at [facility] 07/14 to 07/18/2025 with acute HFpEF. She was diuresed and sent out on higher dose lasix 40mg BID. She reports she had thoracentesis on Wednesday 07/25 with 500 cc removed,
but since then has continued to feel significantly SOB and is unable to walk even short distances without symptoms. No chest pain. She was at treatment earlier today and was told due to her worsening symptoms, that she needed to come to ER for valve
surgery. [place] [address] with chest xray with worsening pulmonary edema. Creat has also bumped to 1.9. Weight overall stable. Cardiology consulted for evaluation given acute heart failure.
Data Reviewed
-
EKG: Tracing Personally Visualized and interpreted
Radiology: Report Reviewed by me
Labs: Labs Reviewed by me
Old Records: Reviewed
--- NOTE | 2025-07-28 14:56 | EDCM ---
Reviewed chart and met with pt bedside in ED. Pt lives alone in 1 [place], 2 [address].
Independent in Personal care and ambulation, needs assistance with ADLs, Niece lives locally and provides support.
Pt has home O2 from [employer].
PMH includes Lung cancer, currently receiving Radiation at [facility] in [place], Mitral stenosis, DHF, COPD, Pulmonary HTN, HLD, CKD, Graves Disease and Afib. Pt needs mitral valve replacement, plan is for surgery at [facility] after cancer treatment
complete.
Confirms prescription coverage.
No hx VN or SNF, declined VN after last admit 07/14 to 07/17
PCP: Gavi Sidhu
Pharmacy: [facility]
Discharge disposition pending ongoing medical evaluation, CM will continue to follow for all discharge planning needs.
[2025-07-28] MEDS: TOPROL XL PO (20:52)
[2025-07-28] MEDS: ELIQUIS 5 MG PO (20:57)
[2025-07-28] MEDS: ZYPREXA 5 MG PO (21:00)
[2025-07-29] VITALS (7 sets, daily range): BP systolic 86–101; BP diastolic 42–53; PULSE 63–66; O2SAT 96; BMI 24.0
[2025-07-29 05:10] LABS: Hematocrit 23.8 % (37.0-47.0); Hemoglobin 7.6 g/dL (12.0-16.0); Mean Corp Hgb Conc. 31.9 g/dL (33.0-37.0); Mean Corpuscular Volume 99.6 fL (81.0-99.0); Platelet Count 452 10^3/uL (130-400); Red Cell Dist. Width 19.3 % (11.5-14.5)
[2025-07-29 05:43] LABS: Blood Urea Nitrogen 55 mg/dl (7-17); Calcium 9.0 mg/dl (8.4-10.2); Carbon Dioxide 31 mmol/L (22-30); Chloride 90 mmol/L (98-107); Estimated Creatinine Clearance 21 ml/min; Glucose 98 mg/dl (70-99); Potassium 3.9 mmol/L (3.5-5.1); Sodium 129 mmol/L (135-145); eGFR 25.89
[2025-07-29] MEDS: SYNTHROID 50 MCG PO (06:26)
[2025-07-29] MEDS: STRIVERDI RESPIMAT 2 PUFF INH (07:47)
[2025-07-29] MEDS: SPIRIVA RESPIMAT 2.5 MCG 2 PUFF INH (07:47)
[2025-07-29] MEDS: TOPROL XL 25 MG PO (08:50)
[2025-07-29] MEDS: ELIQUIS 5 MG PO ×2 (08:50→20:07)
[2025-07-29] MEDS: CRESTOR 5 MG PO (08:50)
[2025-07-29] MEDS: THERAGRAN 1 TABLET PO (08:50)
[2025-07-29] MEDS: PACERONE 200 MG PO (08:50)
[2025-07-29] MEDS: LASIX 40 MG IV (08:50)
--- NOTE | 2025-07-29 09:11 | W.PN.CARDCBS ---
Addendum entered and electronically signed by Frandy Alfaro DO 07/29/25 09:35:
I saw and examined the patient.
The Air Technician's note was reviewed and I agree with the note.
Comment:
Plan:
Very complex pt and very recently discharged. Unfortunately not likely to be able to remain out of the hospital with worsening medical issues.
She states she has 6 more rad tx at [facility] due to significant valve disease and was on an expedited oncologic tx course due her advanced disease however it appears she may be unable to complete them.
Pt had requsted surgery at [facility] with Dr Holley who did her prior surgery and would consider transfer to [facility]/tertiary care center due to worsening bioprosthetic mitral stenosis and HF
Cont IV lasix diuresis. Cr rising. Follow Na with diuresis
Hb 7.6, consider transfusion.
Remains sinus on amio and Eliquis and Toprol.
Will review with CT surgery and primary service.
Pt remains appreciative.
Original Note:
Today's Communication / Plan
-
continue IV lasix
follow renal function
suspect would benefit from transfer to tertiary care facility as appears to be failing medical therapy of severe bioprosthetic MS
Impression / Plan
-
Engine Dynamometer Tester: Dr. Dilip Alas of [facility]
CT surgeon: Dr. Stephen Holley of [facility]
Primary oncologist: Dr. Mallorie Ross of [facility]
Pulm: [facility] lung
Impression:
Presented with worsening LAGOS
FERNANDO
Hyponatremia
Acute on chronic HFpEF
Paroxysmal atrial fibrillation
s/p MAZE, MITZY ligation
chronic amiodarone therapy
Chronic OAC with Eliquis
s/p #29 [facility] bioprosthetic MVR 10/26/2018, now w/ severe MS and severe TR
Lung Cancer receiving XRT and chemo with carboplatin/etoposide
Graves Disease
COPD
HTN
HLD
DOUGLAS 10/03/2024 @[facility]: EF 65%, well-seated bioprosthetic mitral valve with mild MR, moderate MS, trace AR, moderate to severe TR with moderate to severe pulmonary hypertension
Echo 07/14/2025: EF 60%, abnormal septal motion, dilated RV, status post #29 [facility] bioprosthetic mitral valve replacement with severe MS, peak/mean gradients 52/25 mmHg, severe TR with PAP 78 mmHg
Plan:
-patient is very complex and very ill
-she has severe bioprosthetic MS and also has lung cancer undergoing treatment. she tells me she has 6 radiation treatments remaining
-was on expedited chemo/radiation course through [facility] due to known valve disease
-this is her second admission in short order for acute CHF and LAGOS. she appears to be failing medical therapy for valve disease as with worsening Cr
-continue IV lasix 40mg BID
-wean supp O2 as able
-would consider transfer to tertiary care center. will discuss again with CT surgery, suspect [facility] most appropriate as Dr. Holley is her surgeon.
-follow hyponatremia with diuresis
-follow hgb, 7.6 on 07/29. on eliquis for history of PAF
-in SR on review of tele. continue toprol, amiodarone
HPI: Natty is a 75 year old female with PMH of chronic HFpEF, paroxysmal atrial fibrillation, MVR now with severe MS and severe TR, lung cancer on chemo and XRT, graves disease, COPD, HTN, and HLD. Presented to [facility] ER for evaluation of worsening
shortness of breath after recent admission. She was recently admitted at [facility] 07/14 to 07/18/2025 with acute HFpEF. She was diuresed and sent out on higher dose lasix 40mg BID. She reports she had thoracentesis on Wednesday 07/25 with 500 cc removed,
but since then has continued to feel significantly SOB and is unable to walk even short distances without symptoms. No chest pain. She was at treatment earlier today and was told due to her worsening symptoms, that she needed to come to ER for valve
surgery. [place] [address] with chest xray with worsening pulmonary edema. Creat has also bumped to 1.9. Weight overall stable. Cardiology consulted for evaluation given acute heart failure.
Progress Note - Engine Dynamometer Tester
Subjective
Date of Service: July 29, 2025
reports breathing is about the same.
Objective
Labs:
07/29/25 04:41
07/29/25 04:41
Labs
Hgb 7.6 g/dL (12.0-16.0) L 07/29/25 04:41
Hct 23.8 % (37.0-47.0) L 07/29/25 04:41
Plt Count 452 10^3/uL (130-400) H 07/29/25 04:41
Sodium 129 mmol/L (135-145) L 07/29/25 04:41
Potassium 3.9 mmol/L (3.5-5.1) 07/29/25 04:41
BUN 55 mg/dl (7-17) H 07/29/25 04:41
Creatinine 2.0 mg/dL (0.6-1.0) H 07/29/25 04:41
Glucose 98 mg/dl (70-99) 07/29/25 04:41
Troponins
07/28/25
12:06
Troponin I 0.019
Vital Signs and I&O:
Vital Signs
Temp Pulse Resp BP Pulse Ox
97.2 F 100 16 93/47 92
07/29/25 07:47 07/29/25 07:52 07/29/25 07:52 07/29/25 07:47 07/29/25 07:52
Vital Signs
Temp Pulse Resp BP Pulse Ox
97.2 F 100 16 93/47 92
07/29/25 07:47 07/29/25 07:52 07/29/25 07:52 07/29/25 07:47 07/29/25 07:52
Intake & Output
07/27/25 07/28/25 07/29/25 07/30/25
07:59 07:59 07:59 07:59
Intake Total 480 / 480
Balance 480 / 480
Physical Exam
Physical Exam
GEN: No distress, awake, alert, oriented x3. on supp O2
HEENT: supple, anicteric, mmm, eomi
LUNGS: Crackles B/L bases, no wheezes
CV: Reg, S1/S2, 2/6 murmur
ABD: soft, BS+, NT/ND
EXT: No cyanosis, clubbing, edema
NEURO: Gross non-focal
SKIN: Warm, pink, dry. No rash
--- NOTE | 2025-07-29 09:29 | W.PN.HOSP.TC ---
Today's Communication/Plan
-
Discharge to [facility]
Assessment / Plan
Assessment / Plan
Physical Exam
General: No Apparent Distress, chronically ill looking.
HEENT: Normocephalic, Atraumatic, bald( hair loss) Moist Mucous Membranes, No Ptosis, PERRLA and Nose Appears Normal
Respiratory: Rales, Rhonchi and Non Labored Respirations, left chest port ( no erythema)
Cardiac: Regular Rhythm and S1/S2, + murmur.
GI: Soft, Nontender, Nondistended and Normal Bowel Sounds
Genito-urinary: No Costovertebral Tender
Musculoskeletal: No Clubbing, No Cyanosis and No Edema
Skin: Warm
Neuro: Awake, Alert, Oriented, AO x 3 and No Motor Deficits
Psych: Calm
A/P:
75 y/o female presented with sob, failure to thrive, weakness.
#Acute on hypoxic respiratory failure, multifactorial.
History of Bioprosthetic Mitral Valve Replacement (2019)
Secondary acute on Chronic HFpEF with underlying lung cancer diagnosis
Patient presented with shortness of breath.
NT-proBNP: 7,950 (previously 479 in Mar 2025).
Troponin level is 0.034
Continue IV diuresing in form of Lasix 40 mg twice daily as BP tolerates.
Hypotension is limiting using GDMT medications.
Daily weight.
Strict I's and O's.
Consulted cardiology.
Per cardiology, patient is very complex and ill. Severe bioprosthetic mitral stenosis with history of failing medical therapy, worsening creatinine. Recommend transfer to tertiary care center for treatment of valvular heart disease
Most recent echo shows :
#Anemia secondary to chemotherapy.
# Failure to thrive. Patient reports severe son upon standing or walking 2-3 feet.
Small Cell Lung Cancer
Receives treatment at [facility].
Cardiology discussed with Dr. Jeffery, oncologist at [facility] regarding patient. They cannot continue her oncologic treatments at the current time given her worsening anemia, kidney function, pleural effusions, heart failure, sob, and would recommend
moving forward with expedited valve replacement surgery. Cardiology reached out to Dr. Holley at [facility], agreed to transfer.
# COPD (No acute exacerbation)
Continue Anoro Ellipta.
# Paroxysmal Atrial Fibrillation (s/p MITZY ligation & MAZE)
Continue Eliquis for anticoagulation.
Continue amiodarone and metoprolol for rate/rhythm control as BP tolerated.
#Essential Hypertension
Plan: Continue metoprolol with hold parameters.
# Hyperlipidemia
# hyponatremia
# Acute on chronic disease - CKD Stage IIIb
Creatinine is worsening. Concern for cardio-renal disease.
History of Graves Disease
Plan: Continue levothyroxine.
Goal of care discussed with patient. She would like to continue care with her surgeon at [facility]
Discussed with industry analyst, recommend transfer to [facility]. I called transfer center spoke with train station agent. Reached out to cardiothoracic Dr. Holley, he wanted to see the patient [facility] but first to be on medical service due to complicated medical
problems and need to evaluate the patient from all aspects. Communicated with medicine service ip technology transactions attorney Dr. Ye Mcconnell, did not accept the patient. Reached out to cardiology service Dr. Ted Gilbert, he accepted the pt. Patient consented to
transferred knowing risk of transfer including heart failure, hypoxia, respiratory failure, .
Total discharge time spent to see the patient, examine the patient, review data and lab results, discuss discharge plan with patient, her niece, cardiology, nursing staff around 69 minutes
Anticipated Discharge: Today
Subjective/Interval History
-
Date of Service: July 29, 2025
Still sob, no chest pain
Objective Data
-
Labs:
Laboratory Results
07/29/25
04:41
WBC 9.8
Hgb 7.6 L
Hct 23.8 L
Plt Count 452 H
Sodium 129 L
Potassium 3.9
Chloride 90 L
Carbon Dioxide 31 H
BUN 55 H
Creatinine 2.0 H
Glucose 98
Calcium 9.0
Vital Signs:
Vital Signs
Temp Pulse Resp BP Pulse Ox
97.2 F 100 16 93/47 92
07/29/25 07:47 07/29/25 07:52 07/29/25 07:52 07/29/25 07:47 07/29/25 07:52
I&O
07/28/25 07/29/25 07/30/25
06:59 06:59 06:59
Intake Total 480 / 480
Balance 480 / 480
--- NOTE | 2025-07-29 10:45 | W.PN.UPDATE ---
Addendum entered and electronically signed by Lanie Kaye PA-C 07/29/25 15:15:
Updated Dr. Holley via telephone. They will follow her upon her arrival to [facility].
Original Note:
Update Note
Progress Note Update
d/w Dr. Jeffery, oncologist at [facility], regarding patient. They cannot continue her oncologic treatments at the current time given her worsening anemia, kidney function, pleural effusions, and would recommend moving forward with expedited valve
replacement surgery. will attempt to reach out to Dr. Holley at [facility] to discuss transfer.
--- NOTE | 2025-07-29 15:57 | CM ---
Patient seen at bedside
Transfer to [place]
IMM explained & signed. In chart
PLAN: Transfer to [place], transport set for 2100
[2025-07-29] MEDS: ZYPREXA 5 MG PO (20:07)
[2025-07-29] MEDS: TOPROL XL PO (20:07)
--- NOTE | 2025-07-30 06:57 | W.DCSUMMARY ---
Discharge Summary
Discharge Data
Date of Admission: 07/28/25
Date of Discharge: 07/29/25
-
Pending Results: No
Hospital Course
75 years old female presented with weakness, increasing shortness of breath, fatigue for few weeks. Patient reported that she was recently discharged from the hospital but did not improve significantly at home and she continued to have progressive
weakness with shortness of breath. Patient was diagnosed with acute on chronic heart failure. She has severe mitral stenosis. Patient was evaluated by high density press operator. Patient was getting medical treatment for treatment of valvular heart disease
and heart failure but did not respond well. She was failing medical treatment with increasing weakness, shortness of breath, rising creatinine. Imaging Aide recommended transfer to tertiary care center. Patient was following with technical operations specialist
and cardiothoracic surgeon at [facility]. Patient has lung cancer and her oncologist stated that she was not candidate for further treatment until managing and treating her heart condition. Patient had very severe
impairment to performance status. Transfer arrangement to [place]. Cardiothoracic surgeon Dr. Holley wanted patient to be transferred to hospitalist service due to complexity of her condition. Hospital service at [place] did not accept the patient and
deferred case to cardiology service. Imaging Aide on-call at [place] Dr. Ted Gilbert accepted the patient. Patient and her family consented to transfer care. Patient was transferred by ambulance to [facility] in a
stable condition.
Discharge Plan
-
Patient Disposition: Acute Care Hospital
Discharge Orders:
Discharge Patient (As Directed); Ordered 07/29/25
Ordered By: Maeve Persaud
Discharge Date and Time
Discharge Date/Time: 07/29/25 21:14
Print Language: DANISH
== END 2025-07-29 21:14 | disposition short-term general hospital (02) | DRG 291 ==
LOC: 3 WEST ACU 13:59
PROVIDERS: Nurse Practitioner Family; ADMITTING PHYSICIAN Internal Medicine; ATTENDING PHYSICIAN Internal Medicine; CONSULT PHYSICIAN Internal Medicine Cardiovascular Disease; EMERGENCY PHYSICIAN Emergency Medicine; FAMILY PHYSICIAN Nurse Practitioner
DX: I13.0 Hypertensive heart and chronic kidney disease with heart failure and stage 1 through stage 4 chronic kidney disease, or unspecified chronic kidney disease (principal); I50.33 Acute on chronic diastolic (congestive) heart failure; J96.01 Acute respiratory failure with hypoxia; T82.857A Stenosis of other cardiac prosthetic devices, implants and grafts, initial encounter; C34.90 Malignant neoplasm of unspecified part of unspecified bronchus or lung; E87.1 Hypo-osmolality and hyponatremia; N17.9 Acute kidney failure, unspecified; Z95.3 Presence of xenogenic heart valve; Y83.1 Surgical operation with implant of artificial internal device as the cause of abnormal reaction of the patient, or of later complication, without mention of misadventure at the time of the procedure; D64.81 Anemia due to antineoplastic chemotherapy; J44.9 Chronic obstructive pulmonary disease, unspecified; I48.0 Paroxysmal atrial fibrillation; E78.5 Hyperlipidemia, unspecified; R62.7 Adult failure to thrive; I27.20 Pulmonary hypertension, unspecified; N18.32 Chronic kidney disease, stage 3b; Z87.891 Personal history of nicotine dependence; Z79.890 Hormone replacement therapy; Z79.01 Long term (current) use of anticoagulants; Z79.899 Other long term (current) drug therapy
CPT/HCPCS: 71046; 80048; 83880; 84484; 85025; 85027; 93005; 94640; 97163; 97167; 99285